=== PATIENT | female | born 1940 | race Caucasian/White ===

== ENCOUNTER → 2016-04-16 | Outpatient (CLI) | payer OTHER ==
[~2016-04-16] MED LIST: FLUO20CA35 PO; LEVO125T72 PO; LINA1CAP2 PO; PHOSPHATIDYLSERINE PO; ZINC100T3 PO; [UNRECOGNIZED DRUG - OTHER] PO; ambien PO; calcium PO; flaxseed PO; magnesium PO; oil of oregano PO; potassium PO; vitamin c PO; xanax PO
[2016-04-16 15:06] LABS: ESTIMATED AVERAGE GLUCOSE 146 mg/dl; HA1C FLAG Normal (Normal)
== END | disposition home or self-care (01) ==
LOC: C.LAB1850 13:53
PROVIDERS: ATTEND Internal Medicine Endocrinology, Diabetes & Metabolism
DX: E78.5 Hyperlipidemia, unspecified (principal); E10.21 Type 1 diabetes mellitus with diabetic nephropathy; E55.9 Vitamin D deficiency, unspecified

== ENCOUNTER → 2016-10-22 | Outpatient (CLI) | payer OTHER ==
[2016-10-22 13:35] LABS: ESTIMATED AVERAGE GLUCOSE 151 mg/dl; HA1C FLAG Normal (Normal)
[2016-10-22 13:45] LABS: ALT/SGPT 33 U/L (12-78); BLOOD UREA NITROGEN 27 mg/dl (7-18); BUN/CREATININE RATIO 24.6 (10-20); CALCIUM 9.5 mg/dl (8.5-10.1); CARBON DIOXIDE 32 mmol/L (21-32); CHLORIDE 102 mmol/L (98-107); CHOLESTEROL 140 mg/dl (0-200); GLUCOSE 121 mg/dl (70-99); POTASSIUM 4.7 mmol/L (3.5-5.1); SODIUM 137 mmol/L (136-145)
[2016-10-22 13:56] LABS: ALB/GLOB RATIO 1.2 (0.9-2); ALKALINE PHOSPHATASE 102 U/L (45-117); AST/SGOT 20 U/L (15-37); CHOLESTEROL/HDL RATIO 1.8; HDL CHOLESTEROL 78 mg/dl; LDL CHOLESTEROL CALCULATED 50 mg/dl; TRIGLYCERIDES 60 mg/dl (0-150); VERY LOW DENSITY LIPOPROT CALC 12 mg/dl
[2016-10-22 15:40] LABS: RATIO 9.1 mcg/mg (0-30.0)
== END | disposition home or self-care (01) ==
LOC: C.LAB1850 12:16
PROVIDERS: ATTEND Internal Medicine Endocrinology, Diabetes & Metabolism
DX: E55.9 Vitamin D deficiency, unspecified (principal); E10.649 Type 1 diabetes mellitus with hypoglycemia without coma; E87.1 Hypo-osmolality and hyponatremia

== ENCOUNTER → 2017-04-22 | Outpatient (CLI) | payer OTHER ==
[2017-04-22 14:05] LABS: BLOOD UREA NITROGEN 26 mg/dl (7-18); CALCIUM 9.8 mg/dl (8.5-10.1); CARBON DIOXIDE 28 mmol/L (21-32); CREATININE 0.93 mg/dl (0.60-1.20); GLUCOSE 267 mg/dl (70-99); POTASSIUM 4.5 mmol/L (3.5-5.1); SODIUM 137 mmol/L (136-145)
== END | disposition home or self-care (01) ==
LOC: C.LAB1850 12:05
PROVIDERS: ATTEND Internal Medicine Endocrinology, Diabetes & Metabolism
DX: E10.9 Type 1 diabetes mellitus without complications (principal); N18.9 Chronic kidney disease, unspecified

== ENCOUNTER 2020-07-16 07:47 | Observation (INO) ==
--- NOTE | 2020-07-16 07:51 | Emergency Department Note ---
Impression & Plan Nausea & vomiting, Dehydration, Abdominal pain ED Provider Note NAME: ELINOR BULLOCK AGE: 80 SEX: F : 1940 ARRIVES VIA: Walk-In INFORMANT: Patient, ED PROVIDER(S): Peter Pérez MD Chief Complaint: Nausea vomiting HPI: Patient does present with nausea and vomiting has been ongoing the last 2 to 3 days. Symptoms have been fairly constant and have not improved since they began. The patient states she was recently started on tetracycline from her process technician Dr. Loera due to concern for diarrhea secondary to neuropathy. Patient is started medication last Tuesday and believes she stopped it s everal days ago. Patient denies any stream or well water use or changes in diet. The patient is insulin-dependent diabetic and does use an insulin pump. Patient denies receiving any recent boluses as the patient has not been eating well. The patient likely has not taken her medications for last 3 days. The patient has had cramping and burning reflux type abdominal pain that is diffuse over the mid and upper abdomen. The patient denies any recent falls. No known sick contacts. The patient states she is vaccinated for Covid. The patient has not noticed any blood in the urine, stool or vomit. The patient denies any blood thinning medications. Patient denies any recent surgeries procedures or travel. ROS: See HPI for pertinent positives and negatives. A total of 10 systems were rev iewed and otherwise negative. Past medical history: See below Surgical history: See below Social history: See below Physical Exam: GENERAL: Wearing a mask. NAD, non-toxic. EYE EXAM: Normal conjunctiva. PERRL, no anisocoria and EOM's grossly intact w/o pain. NECK: Supple, no nuchal rigidity, no adenopathy, non-tender. No signs of meningismus. LUNGS: Clear to auscultation. Normal chest wall mechanics. HEART: Tachycardic and regular, stock ejection murmur noted. ABDOMEN: Abdomen soft, upper and mid abdominal discomfort without peritonitis, insulin pump in place in the mid abdomen with no surrounding erythema, crepitus or drainage, normo-active bowel sounds, no masses, no rebound or guarding. BACK: No CVA TTP. SKIN: No rashes and no bruising. UPPER EXTREMITIES: Upper extremities are grossly normal. LOWER EXTREMITIES: Grossly normal, no edema. NEURO EXAM: A&O x3, cranial nerves II-XII grossly intact, normal speech, moves all 4 extremities on command w/o issue. Differential diagnoses: Appendicitis, ovarian cyst, ovarian torsion, ectopic , TOA, PID, infections, diverticulitis, UTI, obstruction, mesenteric ischemia, aortic pathology, inflammatory bowel disease, renal colic, PUD, pancreatitis, biliary pathology, hernia, volvulus, constipation, as well as other pathologies. Course: Patient was seen and evaluated the bedside. Full history physical exam was performed. EKG interpreted by me Sinus tachycardia, rate of 112, normal intervals, left axis deviation, T WI in V2 not in contiguous leads. Imaging Studies: See below Cardiac monitoring: An order was placed for continuous cardiac monitoring. The monitor shows a rate of 110 with tachycardic rhythm. MDM: Patient did present with concern for nausea vomiting and abdominal pain. Blood work is obtained along with a CT abdomen pelvis and the patient was treated symptomatically. Patient is a normal white count H&H and platelet count. The patient's kidney function is mildly changed from prior. The patient does not have an anion gap or low bicarb. The patient is not DKA. LFTs and troponin unremarkable. Urinalysis does show evidence of dehydration with ketones. Upon subsequent reassessment the patient has had some intractable nausea was given additional rounds of nausea medication. Chest x-ray clear. CT abdomen pelvis does not show any acute infectious or inflammatory findings of the abdomen pelvis but does show tree-in-bud opacities at the base of the lungs. The patient has complained of nonproductive cough. Covid negative. Antibiotics deferred at this time as the patient does not have a white count is a non-smoker and does not have productive cough. I did speak the on-call hospitalist and the patient was admitted by Dr. Smallwood. 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 Dysesthesia Dyslipidemia Leon's thyroiditis Hypertension Hypothyroidism Neurogenic claudication Osteopenia Spinal stenosis of lumbar region Type 1 diabetes mellitus with complications Surgical History H/O wrist surgery History of appendectomy History of hip surgery History of tonsillectomy and adenoidectomy Family History Mother Hypertension Father Cancer Social History Smoking Status: Former smoker Hx Alcohol Use: Yes Alcohol type: wine Preferred Language: Yakut Communication Ability: Effective Visual Impairment: Limited Hearing Ability: Normal Beliefs That Will Affect Care: None marital status: current occupational status: retired current occupation: retired Feels Safe at Home: Yes Allergies Allergies Allergy/AdvReac Type Severity Reaction Status Date / Time No Known Allergies Allergy Verified 07/16/20 08:58 Home Meds Home Medications Medication Instructions Recorded Confirmed mirabegron 25 mg tablet,extended 25 mg PO DAILY 06/27/19 07/16/20 release 24 hr doxepin 3 mg tablet 3 mg PO HS PRN tab 08/06/19 07/16/20 brimonidine-timolol [Combigan] 1 drp OPB UD 07/16/20 07/16/20 duloxetine 60 mg PO DAILY 07/16/20 07/16/20 ipratropium bromide 1 spray INTRANASAL DAILY PRN 07/16/20 07/16/20 levothyroxine 100 mcg PO DAILY 07/16/20 07/16/20 midodrine 5 mg PO DAILY 07/16/20 07/16/20 Previous Rx's Medication Instructions Recorded zoledronic acid 5 mg/100 mL in 5 mg IV ONCE #100 ml 12/19/18 mannitol 5 %-water intravenous piggybck insulin syringe-needle U-100 0.3 #100 ea 08/09/19 mL 31 gauge x 5/16" atorvastatin 40 mg tablet 40 mg PO DAILY #90 tab 02/21/20 calcitriol 0.5 mcg capsule 0.5 mcg PO DAILY #90 cap 02/21/20 gabapentin 300 mg capsule 300 mg PO .COMPLEX #450 cap 02/21/20 Novolog U-100 Insulin aspart 100 60 unit CONTINUOUS SUBCUTANEOUS 03/06/20 unit/mL subcutaneous solution INFUSION DAILY 90 Days #60 ml NS Contour Next Test Strips #400 ea NS 06/17/20 tetracycline 250 mg capsule 250 mg PO Q6H #120 cap 07/07/20 Results & Data (ED) Vital Signs Vital Signs - 24 hr 07/16/20 07:52 07/16/20 07:55 07/16/20 07:56 Temperature 37.1 C Temperature Source Oral Pulse Rate 111 H 113 H Pulse Rate from SpO2 Sensor 111 H Pulse Rhythm Regular Pulse Strength Normal Respiratory Rate 22 15 Respiratory Effort / Characteristics Non-Labored Spontaneous Respiratory Depth Normal Respiratory Pattern Regular Blood Pressure 190/138 H 190/135 H Blood Pressure Mean 155 153 Blood Pressure Position Lying Pulse Oximetry 95 97 95 Oxygen Delivery Method Room Air Room Air Sepsis Recent Fever Within 48 Hours No Sepsis New/Unexplained Change in Mental Status No Sepsis Action Taken by Nursing No Action Required 07/16/20 08:00 07/16/20 08:31 07/16/20 09:00 Temperature Temperature Source Pulse Rate 109 H 115 H 111 H Pulse Rate from SpO2 Sensor 110 H 114 H 112 H Pulse Rhythm Pulse Strength Respiratory Rate 25 H 24 21 Respiratory Effort / Characteristics Respiratory Depth Respiratory Pattern Blood Pressure 195/117 H 191/111 H 173/115 H Blood Pressure Mean 143 137 134 Blood Pressure Position Pulse Oximetry 95 96 95 Oxygen Delivery Method Sepsis Recent Fever Within 48 Hours Sepsis New/Unexplained Change in Mental Status Sepsis Action Taken by Nursing 07/16/20 10:00 07/16/20 10:30 Temperature Temperature Source Pulse Rate 111 H 110 H Pulse Rate from SpO2 Sensor 111 H Pulse Rhythm Pulse Strength Respiratory Rate 22 20 Respiratory Effort / Characteristics Respiratory Depth Respiratory Pattern Blood Pressure 164/91 H 167/104 H Blood Pressure Mean 115 125 Blood Pressure Position Pulse Oximetry 97 96 Oxygen Delivery Method Sepsis Recent Fever Within 48 Hours Sepsis New/Unexplained Change in Mental Status Sepsis Action Taken by [facility] Medications Current Medication List: was personally reviewed by me Laboratory Data Attestation: I reviewed the patient's lab results. Result diagrams: 07/16/20 08:15 07/16/20 08:15 Lab Results 07/16/20 07/16/20 07/16/20 Range/Units 07:51 08:15 08:15 WBC 9.64 (4.8-10.8) K/uL RBC 4.50 (4.2-5.4) M/uL Hgb 13.6 (12.0-16.0) g/dL Hct 40.4 (37-47) % MCV 89.8 (80-100) fL MCH 30.2 (25-34) pg MCHC 33.7 (32-36) g/dL RDW Std Deviation 42.6 (36.4-46.3) fL RDW Coeff of Adrienne 12.9 (11.5-14.5) % Plt Count 332 (130-400) K/uL MPV 10.3 (7.4-10.4) fL Immature Gran % (Auto) 0.2 % Neut % (Auto) 81.3 % Lymph % (Auto) 10.9 % [place] % (Auto) 7.2 % Eos % (Auto) 0.0 % Baso % (Auto) 0.4 % Neut # (Auto) 7.84 H (1.4-6.5) K/uL Lymph # (Auto) 1.05 L (1.2-3.4) K/uL [place] # (Auto) 0.69 H (0.11-0.59) K/uL Eos # (Auto) 0.00 (0-0.5) K/uL Baso # (Auto) 0.04 (0-0.2) K/uL Immature Gran # (Auto) 0.02 (0.00-0.02) K/uL Sodium 136 (136-145) mmol/L Potassium 4.4 (3.5-5.1) mmol/L Chloride 101 (98-107) mmol/L Carbon Dioxide 28 (21-32) mmol/L Anion Gap 7.0 (3-11) BUN 41 H (7-18) mg/dl Creatinine 1.27 H (0.6-1.2) mg/dl Est Cr Clr Drug Dosing 34.9 ml/min Est GFR ( Amer) 46.5 ml/min Est GFR (Non-Af Amer) 40.1 ml/min BUN/Creatinine Ratio 32.5 H (10-20) Glucose 283 H (70-99) mg/dl POC Glucose 263 H (70-99) mg/dl Calcium 9.6 (8.5-10.1) mg/dl Magnesium 2.0 (1.8-2.4) mg/dl Total Bilirubin 1.0 (0.2-1) mg/dl AST 23 (15-37) U/L ALT 30 (12-78) U/L Alkaline Phosphatase 115 (45-117) U/L Troponin I < 0.015 (0-0.045) ng/ml Total Protein 7.2 (6.4-8.2) gm/dl Albumin 3.7 (3.4-5.0) gm/dl Globulin 3.5 (2.5-4.0) gm/dl Albumin/Globulin Ratio 1.1 (0.9-2) TSH 0.350 (0.300-4.500) uIu/ml Urine Color Urine Appearance (Clear) Urine pH (4.5-7.5) Ur Specific [place] (1.000-1.030) Urine Protein (Negative) Urine Glucose (UA) (Negative) Urine Ketones (Negative) Urine Blood (Negative) Urine Nitrite (Negative) Urine Bilirubin (Negative) Urine Urobilinogen (Negative) Ur Leukocyte Esterase (Negative) COVID-19 Eval Order SARS-CoV-2 (PCR) (Negative) 07/16/20 07/16/20 07/16/20 Range/Units 09:00 10:30 10:30 WBC (4.8-10.8) K/uL RBC (4.2-5.4) M/uL Hgb (12.0-16.0) g/dL Hct (37-47) % MCV (80-100) fL MCH (25-34) pg MCHC (32-36) g/dL RDW Std Deviation (36.4-46.3) fL RDW Coeff of Adrienne (11.5-14.5) % Plt Count (130-400) K/uL MPV (7.4-10.4) fL Immature Gran % (Auto) % Neut % (Auto) % Lymph % (Auto) % [place] % (Auto) % Eos % (Auto) % Baso % (Auto) % Neut # (Auto) (1.4-6.5) K/uL Lymph # (Auto) (1.2-3.4) K/uL [place] # (Auto) (0.11-0.59) K/uL Eos # (Auto) (0-0.5) K/uL Baso # (Auto) (0-0.2) K/uL Immature Gran # (Auto) (0.00-0.02) K/uL Sodium (136-145) mmol/L Potassium (3.5-5.1) mmol/L Chloride (98-107) mmol/L Carbon Dioxide (21-32) mmol/L Anion Gap (3-11) BUN (7-18) mg/dl Creatinine (0.6-1.2) mg/dl Est Cr Clr Drug Dosing ml/min Est GFR ( Amer) ml/min Est GFR (Non-Af Amer) ml/min BUN/Creatinine Ratio (10-20) Glucose (70-99) mg/dl POC Glucose (70-99) mg/dl Calcium (8.5-10.1) mg/dl Magnesium (1.8-2.4) mg/dl Total Bilirubin (0.2-1) mg/dl AST (15-37) U/L ALT (12-78) U/L Alkaline Phosphatase (45-117) U/L Troponin I (0-0.045) ng/ml Total Protein (6.4-8.2) gm/dl Albumin (3.4-5.0) gm/dl Globulin (2.5-4.0) gm/dl Albumin/Globulin Ratio (0.9-2) TSH (0.300-4.500) uIu/ml Urine Color Yellow Urine Appearance Clear (Clear) Urine pH 5.5 (4.5-7.5) Ur Specific [place] 1.021 (1.000-1.030) Urine Protein Negative (Negative) Urine Glucose (UA) 3+ H (Negative) Urine Ketones Trace H (Negative) Urine Blood Negative (Negative) Urine Nitrite Negative (Negative) Urine Bilirubin Negative (Negative) Urine Urobilinogen Negative (Negative) Ur Leukocyte Esterase Negative (Negative) COVID-19 Eval [address] Covid19 at [facility] SARS-CoV-2 (PCR) NEGATIVE (Negative) Administered Medications Discontinued Medications Sodium Chloride (Nss 1000ml) 2,000 mls @ 999 mls/hr IV .Q2H1M DANGELO Stop: 07/16/20 10:00 Last Infusion: 07/16/20 10:34 Dose: 0 mls/hr Documented by: [id number] Admin: 07/16/20 08:23 Dose: 999 mls/hr Documented by: [id number] Sodium Chloride (Nss 1000ml) 500 mls @ 999 mls/hr IV .Q31M ONE Stop: 07/16/20 10:32 Last Infusion: 07/16/20 11:37 Dose: 0 mls/hr Documented by: [id number] Admin: 07/16/20 10:41 Dose: 999 mls/hr Documented by: [id number] Ioversol (Optiray 320 150ml) 89 ml IV ONCE ONE Stop: 07/16/20 09:23 Last Admin: 07/16/20 09:22 Dose: 89 ml Documented by: [id number] Ondansetron HCl (Ondansetron Inj 2 Mg/Ml 2 Ml Vial) 4 mg IV NOW STA Stop: 07/16/20 07:59 Last Admin: 07/16/20 08:23 Dose: 4 mg Documented by: [id number] Ondansetron HCl (Ondansetron Inj 2 Mg/Ml 2 Ml Vial) 4 mg IV NOW STA Stop: 07/16/20 10:03 Last Admin: 07/16/20 10:40 Dose: 4 mg Documented by: [id number] Imaging Data Radiologist's Impression: Abdomen/Pelvis CT 07/16/20 07:58 CT abd pelvis IV con only CLINICAL HISTORY: Abdominal pain, nausea, vomiting, diarrhea. COMPARISON STUDY: None. TECHNIQUE: Patient was scanned in a dynamic helical fashion during intravenous administration of 89 cc of Optiray 320. A dose lowering technique was utilized adhering to the principles of ALARA. CT DOSE: 699.75 mGy.cm FINDINGS: Lower chest: There are bibasilar tree-in-bud opacities, statistically infectious/inflammatory. There is distal esophageal wall thickening. There are no pleural effusions. Liver: The contrast-enhanced liver is normal in size, contour, and attenuation. There is no intrahepatic biliary ductal dilatation. The hepatic veins and portal veins are patent. Gallbladder: Unremarkable. Spleen: Normal in size and attenuation. Pancreas: Unremarkable. Adrenal glands: Unremarkable. Kidneys: There is an 8mm right renal cortical cyst. There is no hydronephrosis. No solid renal masses are visualized. Bowel: There are no transition zones indicate bowel obstruction. There is no evidence of acute diverticulitis. By history the appendix is surgically absent. Peritoneum: There is no intraperitoneal free air or abdominal ascites. There is a tiny fat-containing umbilical hernia. Vasculature: The abdominal aorta is normal in course and caliber. Adenopathy: None. Pelvic viscera: The bladder, and pelvic viscera are unremarkable. Skeletal structures: Postsurgical changes involve the left hip. No destructive skeletal lesions are visualized. There is calcification of the L4-5 disc. There is discogenic endplate erosive changes at the L2-3 level and L3-4 level. IMPRESSION: 1. No evidence of bowel obstruction. No evidence of free air 2. No evidence of acute diverticulitis. Reportedly surgically absent appendix 3. Bilateral lower lobe tree-in-bud pulmonary opacities, statistically infectious/inflammatory 4. Distal esophageal wall thickening ACT 112: Negative or not required by law. Electronically signed by: Jose Mahan M.D. 07/16/2020 9:53 AM Chest X-Ray 07/16/20 07:58 XR chest 1V portable HISTORY: 80 years-old Female weakness acute weakness COMPARISON: None TECHNIQUE: Portable AP view of the chest FINDINGS: Nipple shadow projects of the right lung base. Cardiomediastinal and hilar silhouettes are within normal limits. Mild pleural thickening of the lung apices, right greater than left. There is no pneumothorax, pleural effusion, airspace consolidation or overt pulmonary edema. There are healed chronic fractures of the lateral left third and fourth ribs. Degenerative changes of the shoulders and spine. IMPRESSION: 1. No acute process. 2. Mild pleural thickening of the lung apices, right greater than left. ACT 112: Negative or not required by law. The above report was generated using voice recognition software. It may contain grammatical, syntax or spelling errors. Electronically signed by: Ethan Stuart M.D. 07/16/2020 8:32 AM Discharge Plan Visit Data Chief Complaint: Nausea Stated Complaint: NAUSEA ED Provider: Peter Pérez Discharge Problem: Nausea & vomiting, Dehydration, Abdominal pain Forms Stand Alone Forms: [facility] [employer] Prescriptions Prescriptions: No Action Myrbetriq 25 mg tablet extended release 24 hr 25 mg PO DAILY RF: 0 doxepin [Silenor] 3 mg tablet 3 mg PO HS PRN (Reason: Unknown) RF: 0 (DME) insulin syringe-needle U-100 [BD SafetyGlide Insulin Syringe] 0.3 mL 31 gauge x 5/16" syringe See Dose Instructions .ROUTE .MEDSUPPLY Qty: 100 RF: 0 atorvastatin 40 mg tablet 40 mg PO DAILY Qty: 90 RF: 1 calcitriol 0.5 mcg capsule 0.5 mcg PO DAILY Qty: 90 RF: 1 gabapentin 300 mg capsule 300 mg PO .COMPLEX Qty: 450 RF: 1 Novolog U-100 Insulin aspart 100 unit/mL solution 60 unit continuous subcutaneous infusion DAILY 90 Days Qty: 60 RF: 1 (DME) Contour Next Test Strips Strip See Rx Instructions .ROUTE .MEDSUPPLY Qty: 400 RF: 3 zoledronic [id number] [Reclast] 5 mg/100 mL piggyback 5 mg IV ONCE Qty: 100 RF: 0 tetracycline 250 mg capsule 250 mg PO Q6H Qty: 120 RF: 0 midodrine 5 mg tablet 5 mg PO DAILY RF: 0 levothyroxine 100 mcg tablet 100 mcg PO DAILY RF: 0 duloxetine 60 mg capsule,delayed release(DR/EC) 60 mg PO DAILY RF: 0 ipratropium bromide 42 mcg (0.06 %) spray,non-aerosol 1 spray INTRANASAL DAILY PRN (Reason: Congestion) RF: 0 Combigan 0.2-0.5 % drops 1 drp OPB UD RF: 0 Discharge Problem: Nausea & vomiting Qualifiers: Vomiting type: unspecified Vomiting Intractability: intractable Qualified Code(s): R11.2 - Nausea with vomiting, unspecified Abdominal pain Qualifiers: Abdominal location: unspecified location Qualified Code(s): R10.9 - Unspecified abdominal pain
[2020-07-16] MEDS ORDERED: ONDANSETRON INJ 2 MG/ML 2 ML VIAL IV STA ×2 (07:58→10:02)
[2020-07-16] MEDS ORDERED: SODIUM CHLORIDE 0.9% 1000ML 2,000 ML IV SCH (08:00)
--- NOTE | 2020-07-16 08:34 | XRay Report ---
XR chest 1V portable HISTORY: 80 years-old Female weakness acute weakness COMPARISON: None TECHNIQUE: Portable AP view of the chest FINDINGS: Nipple shadow projects of the right lung base. Cardiomediastinal and hilar silhouettes are within nor mal limits. Mild pleural thickening of the lung apices, right greater than left. There is no pneumoth orax, pleural effusion, airspace consolidation or overt pulmonary edema. There are healed chronic fra ctures of the lateral left third and fourth ribs. Degenerative changes of the shoulders and spine. IMPRESSION: 1. No acute process. 2. Mild pleural thickening of the lung apices, right greater than left. ACT 112: Negative or not required by law. The above report was generated using voice recognition software. It may contain grammatical, syntax o r spelling errors. Electronically signed by: Ethan Stuart M.D. 07/16/2020 8:32 AM
[2020-07-16 08:39] LABS: Basophils # (auto) 0.04 K/uL (0-0.2); Basophils % (auto) 0.4 %; Hematocrit (blood only) 40.4 % (37-47); Hemoglobin 13.6 g/dL (12.0-16.0); Immature Granulocytes # (auto) 0.02 K/uL (0.00-0.02); Immature Granulocytes % (auto) 0.2 %; Lymphocytes # (auto) 1.05 K/uL (1.2-3.4); Lymphocytes % (auto) 10.9 %; Mean Corpuscular Hemoglobin 30.2 pg (25-34); Mean Corpuscular Hgb Conc 33.7 g/dL (32-36); Mean Corpuscular Volume 89.8 fL (80-100); Mean Platelet Volume 10.3 fL (7.4-10.4); Monocytes # (auto) 0.69 K/uL (0.11-0.59); Monocytes % (auto) 7.2 %; Neutrophils # (auto) 7.84 K/uL (1.4-6.5); Neutrophils % (auto) 81.3 %; Platelet Count 332 K/uL (130-400); RDW Coefficient of Variation 12.9 % (11.5-14.5); RDW Standard Deviation 42.6 fL (36.4-46.3); White Blood Count 9.64 K/uL (4.8-10.8)
[2020-07-16 08:57] LABS: Alanine Aminotransferase 30 U/L (12-78); Albumin Level 3.7 gm/dl (3.4-5.0); Aspartate Aminotransferase 23 U/L (15-37); BUN Creatinine Ratio 32.5 (10-20); Blood Urea Nitrogen 41 mg/dl (7-18); Calcium 9.6 mg/dl (8.5-10.1); Carbon Dioxide 28 mmol/L (21-32); Chloride 101 mmol/L (98-107); Creatinine Clr Calc Pharmacy 34.9 ml/min; Est GFR (African American) 46.5 ml/min; Est GFR (Non-African American) 40.1 ml/min; Glucose 283 mg/dl (70-99); Potassium 4.4 mmol/L (3.5-5.1); Sodium 136 mmol/L (136-145)
--- NOTE | 2020-07-16 08:59 | Electrocardiogram Report ---
Test Reason : Blood Pressure : / mmHG Vent. Rate : 112 BPM Atrial Rate : 112 BPM P-R Int : 172 ms QRS Dur : 082 ms QT Int : 342 ms P-R-T Axes : 085 -18 077 degrees QTc Int : 466 ms Sinus tachycardia with Premature supraventricular complexes Anteroseptal infarct , age undetermined Abnormal ECG No previous ECGs available Confirmed by Ruel Metz ([id number]) on 07/16/2020 8:58:40 AM Referred By: REFERRED SELF Confirmed By:Ruel Metz
[2020-07-16 09:08] LABS: Albumin Globulin Ratio 1.1 (0.9-2); Alkaline Phosphatase 115 U/L (45-117); Globulin 3.5 gm/dl (2.5-4.0); Total Protein 7.2 gm/dl (6.4-8.2); Troponin I < 0.015 ng/ml (0-0.045)
[2020-07-16] MEDS ORDERED: OPTIRAY 320 150ml IV ONE (09:22)
--- NOTE | 2020-07-16 09:54 | CT Scan Report ---
CT abd pelvis IV con only CLINICAL HISTORY: Abdominal pain, nausea, vomiting, diarrhea. COMPARISON STUDY: None. TECHNIQUE: Patient was scanned in a dynamic helical fashion during intravenous administration of 89 c c of Optiray 320. A dose lowering technique was utilized adhering to the principles of ALARA. CT DOSE: 699.75 mGy.cm FINDINGS: Lower chest: There are bibasilar tree-in-bud opacities, statistically infectious/inflammatory. There is distal esophageal wall thickening. There are no pleural effusions. Liver: The contrast-enhanced liver is normal in size, contour, and attenuation. There is no intrahepa tic biliary ductal dilatation. The hepatic veins and portal veins are patent. Gallbladder: Unremarkable. Spleen: Normal in size and attenuation. Pancreas: Unremarkable. Adrenal glands: Unremarkable. Kidneys: There is an 8mm right renal cortical cyst. There is no hydronephrosis. No solid renal masses are visualized. Bowel: There are no transition zones indicate bowel obstruction. There is no evidence of acute divert iculitis. By history the appendix is surgically absent. Peritoneum: There is no intraperitoneal free air or abdominal ascites. There is a tiny fat-containing umbilical hernia. Vasculature: The abdominal aorta is normal in course and caliber. Adenopathy: None. Pelvic viscera: The bladder, and pelvic viscera are unremarkable. Skeletal structures: Postsurgical changes involve the left hip. No destructive skeletal lesions are v isualized. There is calcification of the L4-5 disc. There is discogenic endplate erosive changes at t he L2-3 level and L3-4 level. IMPRESSION: 1. No evidence of bowel obstruction. No evidence of free air 2. No evidence of acute diverticulitis. Reportedly surgically absent appendix 3. Bilateral lower lobe tree-in-bud pulmonary opacities, statistically infectious/inflammatory 4. Distal esophageal wall thickening ACT 112: Negative or not required by law. Electronically signed by: Jose Mahan M.D. 07/16/2020 9:53 AM
[2020-07-16 09:56] LABS: Appearance Urine Clear (Clear); Bilirubin Urine Negative (Negative); Blood Urine Negative (Negative); Color Urine Yellow; Glucose Urine UA 3+ (Negative); Ketones Urine Trace (Negative); Leukocyte Esterase Urine Negative (Negative); Nitrite Urine Negative (Negative); Protein Urine Negative (Negative); Specific Gravity Urine 1.021 (1.000-1.030); Urobilinogen Urine Negative (Negative); pH Urine 5.5 (4.5-7.5)
[2020-07-16] MEDS ORDERED: SODIUM CHLORIDE 0.9% 1000ML 500 ML IV ONE (10:02)
--- NOTE | 2020-07-16 11:58 | History & Physical Report ---
Date of Service July 16, 2020 Assessment & Plan (1) Diarrhea: 80 yo F with DM1, renal insufficiency admitted for PO intake, MICKY due to dehydration and Nausea/vomiting, diarrhea workup. Nausea/vomiting-likely secondary to tetracycline side effect. CT abd/pel with thickened distal esophagus -dc tetracycline -antiemetics prn -start IV pepcid and protonix -start carafate Diarrhea - stool wbc, culture, ova+parasites, giardia, C diff - no wbc elevation, but neutrophilic predominance - stopped tetracycline - monitor for continued diarrheal episodes MICKY with chronic renal insufficiency - Cr 1.2, mild elevation from normal - received 2.5L NS in ER - continue NS at 125/hr x2L for hydration, follow up BMP tomorrow Sinus Tachycardia 2/2 abd pain - most ikely secondary to dehydration + diarrhea - telemetry monitoring, hydration as above - abd pain control with sucralfate, PPI and Famotidine IV - possibly pill esophagitis/gastritis causing abd pain. can look into outpatient EGD/Colonoscopy for follow up if persisting. Hypothyrdoisim - cont levothyroxine DM1 - can use own insulin pump - monitor BSG ACHS - no anion gap, only trace ketones in urine, no concern for DKA - home insulin regimen of 60u novolog subcu continuous infusion Urinary Retention - cont doxepin, mirabegron orthostatic hypotension - hold midodrine for BP 130/90 HLD - cont statin DM1 Neuropathy - cont gabapentin DVT ppx: lovenox FEN/GI: Dm2 diet, NS 125/hr, PPI + H2+ Sucralfate Code Status: Full Code. States she has a living will, unsure what's in it. Does NOT want to be "vegetable" or on nursing home intubation. Dispo: Med/Surg with tele. Lives alone, doesn't have nearby friends or family. 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 as well as chronic renal insufficiency, who was brought to ER by EMS for decreased PO intake, nausea and vomiting and persistent diarrhea. She describes that she has been having ongoing diarrhea for the past month without relief. She was seen on 07/07 by her pipe bowl paint trimmer who prescribed tetracycline to help. She notes that she felt more sick after starting the medic ation and was more nauseous with it. she doesn't know if the diarrhea got any better as she was also taking immodium at the same time. she denies any current episodes of diarrhea. Primary Care Provider: Meg Hinton MD Allergies Allergy/AdvReac Type Severity Reaction Status Date / Time No Known Allergies Allergy Verified 07/16/20 08:58 Home Medications Medication Instructions Recorded Confirmed Type zoledronic acid 5 mg/100 mL in 5 mg IV ONCE #100 ml 12/19/18 07/16/20 Rx mannitol 5 %-water intravenous piggybck mirabegron 25 mg tablet,extended 25 mg PO DAILY 06/27/19 07/16/20 History release 24 hr doxepin 3 mg tablet 3 mg PO HS PRN tab 08/06/19 07/16/20 History insulin syringe-needle U-100 0.3 #100 ea 08/09/19 07/07/20 Rx mL 31 gauge x 5/16" atorvastatin 40 mg tablet 40 mg PO DAILY #90 tab 02/21/20 07/16/20 Rx calcitriol 0.5 mcg capsule 0.5 mcg PO DAILY #90 cap 02/21/20 07/16/20 Rx gabapentin 300 mg capsule 300 mg PO .COMPLEX #450 cap 02/21/20 07/16/20 Rx Novolog U-100 Insulin aspart 100 60 unit CONTINUOUS SUBCUTANEOUS 03/06/20 07/16/20 Rx unit/mL subcutaneous solution INFUSION DAILY 90 Days #60 ml NS Contour Next Test Strips #400 ea NS 06/17/20 07/07/20 Rx tetracycline 250 mg capsule 250 mg PO Q6H #120 cap 07/07/20 07/16/20 Rx brimonidine-timolol [Combigan] 1 drp OPB UD 07/16/20 07/16/20 History duloxetine 60 mg PO DAILY 07/16/20 07/16/20 History ipratropium bromide 1 spray INTRANASAL DAILY PRN 07/16/20 07/16/20 History levothyroxine 100 mcg PO DAILY 07/16/20 07/16/20 History midodrine 5 mg PO DAILY 07/16/20 07/16/20 History 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 Dysesthesia Dyslipidemia Baldomero's thyroiditis Hypertension Hypothyroidism Neurogenic claudication Osteopenia Spinal stenosis of lumbar region Type 1 diabetes mellitus with complications Surgical History H/O wrist surgery History of appendectomy History of hip surgery History of tonsillectomy and adenoidectomy Family History Mother Hypertension Father Cancer Social History Smoking Status: Former smoker Second Hand Exposure: No; Do You Dip or Chew Tobacco: No; Hx Alcohol Use: Yes Alcohol type: wine Hx Substance Use: No Preferred Language: French Communication Ability: Effective Visual Impairment: Limited Hearing Ability: Normal Computer Science Instructor Required: No Beliefs That Will Affect Care: None marital status: Current Living Situation: Alone current occupational status: retired current occupation: retired Other Information That Helps Us Care for You: No Feels Safe at Home: Yes Safety Concerns: Feels Safe At This Time Assistive Devices: Glasses and Hearing Aid - Bilateral Review of Systems Constitutional: + chills and + sweats; no fever and no fatigue Eyes: no blind spots and no discharge Ear, Nose, Mouth, Throat: no hearing loss and no nasal congestion Respiratory: no cough and no dyspnea Cardiovascular: no chest pain, no dyspnea on exertion and no edema Gastrointestinal: + abdominal pain, + heartburn, + nausea, + vomiting, + cramping and + diarrhea/loose stools; no coffee ground emesis, no hematemesis, no constipation, no blood in stools and no melena Genitourinary: no dysuria Musculoskeletal: no joint pain and no myalgia Neurologic: no tingling, no numbness and no headache(s) Physical Exam Physical Exam: Constitutional: thin, elderly, sad appearing sitting comfortably in bed. Eyes: EOMI, pupils equal and reactive bilaterally, no scleral icterus Cardiac: tachycardic, RR, no murmurs, gallops or rubs. Normal S1, S2 Pulm: CTA BL, no wheezes, rhonchi, crackles or rubs, moving air well throughout both lungs Abd: soft, nondistended, diffusely nontender to palpation, reduced bowel sounds, no rebound or guarding Extremities: 2+ peripheral pulses, no edema Neuro: no focal deficits, moving all 4 limbs, A&Ox3 Results & Data Results & Data ([facility]) Vital Signs (Past 12 Hours) Vital Signs Temp Pulse Resp BP Pulse Ox 07/16/20 10:30 110 H 20 167/104 H 96 07/16/20 10:00 111 H 22 164/91 H 97 07/16/20 09:00 111 H 21 173/115 H 95 07/16/20 08:31 115 H 24 191/111 H 96 07/16/20 08:00 109 H 25 H 195/117 H 95 07/16/20 07:56 37.1 C 113 H 15 190/135 H 95 07/16/20 07:55 97 07/16/20 07:52 111 H 22 190/138 H 95 Laboratory Results WBC 9.64 K/uL (4.8-10.8) 07/16/20 08:15 RBC 4.50 M/uL (4.2-5.4) 07/16/20 08:15 Hgb 13.6 g/dL (12.0-16.0) 07/16/20 08:15 Hct 40.4 % (37-47) 07/16/20 08:15 MCV 89.8 fL (80-100) 07/16/20 08:15 MCH 30.2 pg (25-34) 07/16/20 08:15 MCHC 33.7 g/dL (32-36) 07/16/20 08:15 RDW Std Deviation 42.6 fL (36.4-46.3) 07/16/20 08:15 RDW Coeff of Adrienne 12.9 % (11.5-14.5) 07/16/20 08:15 Plt Count 332 K/uL (130-400) 07/16/20 08:15 MPV 10.3 fL (7.4-10.4) 07/16/20 08:15 Immature Gran % (Auto) 0.2 % 07/16/20 08:15 Neut % (Auto) 81.3 % 07/16/20 08:15 Lymph % (Auto) 10.9 % 07/16/20 08:15 Porter % (Auto) 7.2 % 07/16/20 08:15 Eos % (Auto) 0.0 % 07/16/20 08:15 Baso % (Auto) 0.4 % 07/16/20 08:15 Neut # (Auto) 7.84 K/uL (1.4-6.5) H 07/16/20 08:15 Lymph # (Auto) 1.05 K/uL (1.2-3.4) L 07/16/20 08:15 Porter # (Auto) 0.69 K/uL (0.11-0.59) H 07/16/20 08:15 Eos # (Auto) 0.00 K/uL (0-0.5) 07/16/20 08:15 Baso # (Auto) 0.04 K/uL (0-0.2) 07/16/20 08:15 Immature Gran # (Auto) 0.02 K/uL (0.00-0.02) 07/16/20 08:15 Sodium 136 mmol/L (136-145) 07/16/20 08:15 Potassium 4.4 mmol/L (3.5-5.1) 07/16/20 08:15 Chloride 101 mmol/L (98-107) 07/16/20 08:15 Carbon Dioxide 28 mmol/L (21-32) 07/16/20 08:15 Anion Gap 7.0 (3-11) 07/16/20 08:15 BUN 41 mg/dl (7-18) H 07/16/20 08:15 Creatinine 1.27 mg/dl (0.6-1.2) H 07/16/20 08:15 Est Cr Clr Drug Dosing 34.9 ml/min 07/16/20 08:15 Est GFR ( Amer) 46.5 ml/min 07/16/20 08:15 Est GFR (Non-Af Amer) 40.1 ml/min 07/16/20 08:15 BUN/Creatinine Ratio 32.5 (10-20) H 07/16/20 08:15 Glucose 283 mg/dl (70-99) H 07/16/20 08:15 POC Glucose 263 mg/dl (70-99) H 07/16/20 07:51 Calcium 9.6 mg/dl (8.5-10.1) 07/16/20 08:15 Magnesium 2.0 mg/dl (1.8-2.4) 07/16/20 08:15 Total Bilirubin 1.0 mg/dl (0.2-1) 07/16/20 08:15 AST 23 U/L (15-37) 07/16/20 08:15 ALT 30 U/L (12-78) 07/16/20 08:15 Alkaline Phosphatase 115 U/L (45-117) 07/16/20 08:15 Troponin I < 0.015 ng/ml (0-0.045) 07/16/20 08:15 Total Protein 7.2 gm/dl (6.4-8.2) 07/16/20 08:15 Albumin 3.7 gm/dl (3.4-5.0) 07/16/20 08:15 Globulin 3.5 gm/dl (2.5-4.0) 07/16/20 08:15 Albumin/Globulin Ratio 1.1 (0.9-2) 07/16/20 08:15 TSH 0.350 uIu/ml (0.300-4.500) 07/16/20 08:15 Urine Color Yellow 07/16/20 09:00 Urine Appearance Clear (Clear) 07/16/20 09:00 Urine pH 5.5 (4.5-7.5) 07/16/20 09:00 Ur Specific [place] 1.021 (1.000-1.030) 07/16/20 09:00 Urine Protein Negative (Negative) 07/16/20 09:00 Urine Glucose (UA) 3+ (Negative) H 07/16/20 09:00 Urine Ketones Trace (Negative) H 07/16/20 09:00 Urine Blood Negative (Negative) 07/16/20 09:00 Urine Nitrite Negative (Negative) 07/16/20 09:00 Urine Bilirubin Negative (Negative) 07/16/20 09:00 Urine Urobilinogen Negative (Negative) 07/16/20 09:00 Ur Leukocyte Esterase Negative (Negative) 07/16/20 09:00 COVID-19 Eval Order Covid19 at [facility] 07/16/20 10:30 SARS-CoV-2 (PCR) NEGATIVE (Negative) 07/16/20 10:30 Impressions Abdomen/Pelvis CT 07/16/20 07:58 CT abd pelvis IV con only CLINICAL HISTORY: Abdominal pain, nausea, vomiting, diarrhea. COMPARISON STUDY: None. TECHNIQUE: Patient was scanned in a dynamic helical fashion during intravenous administration of 89 cc of Optiray 320. A dose lowering technique was utilized adhering to the principles of ALARA. CT DOSE: 699.75 mGy.cm FINDINGS: Lower chest: There are bibasilar tree-in-bud opacities, statistically infectious/inflammatory. There is distal esophageal wall thickening. There are no pleural effusions. Liver: The contrast-enhanced liver is normal in size, contour, and attenuation. There is no intrahepatic biliary ductal dilatation. The hepatic veins and portal veins are patent. Gallbladder: Unremarkable. Spleen: Normal in size and attenuation. Pancreas: Unremarkable. Adrenal glands: Unremarkable. Kidneys: There is an 8mm right renal cortical cyst. There is no hydronephrosis. No solid renal masses are visualized. Bowel: There are no transition zones indicate bowel obstruction. There is no evidence of acute diverticulitis. By history the appendix is surgically absent. Peritoneum: There is no intraperitoneal free air or abdominal ascites. There is a tiny fat-containing umbilical hernia. Vasculature: The abdominal aorta is normal in course and caliber. Adenopathy: None. Pelvic viscera: The bladder, and pelvic viscera are unremarkable. Skeletal structures: Postsurgical changes involve the left hip. No destructive skeletal lesions are visualized. There is calcification of the L4-5 disc. There is discogenic endplate erosive changes at the L2-3 level and L3-4 level. IMPRESSION: 1. No evidence of bowel obstruction. No evidence of free air 2. No evidence of acute diverticulitis. Reportedly surgically absent appendix 3. Bilateral lower lobe tree-in-bud pulmonary opacities, statistically infectious/inflammatory 4. Distal esophageal wall thickening ACT 112: Negative or not required by law. Electronically signed by: Jose Mahan M.D. 07/16/2020 9:53 AM Chest X-Ray 07/16/20 07:58 XR chest 1V portable HISTORY: 80 years-old Female weakness acute weakness COMPARISON: None TECHNIQUE: Portable AP view of the chest FINDINGS: Nipple shadow projects of the right lung base. Cardiomediastinal and hilar silhouettes are within normal limits. Mild pleural thickening of the lung a pices, right greater than left. There is no pneumothorax, pleural effusion, airspace consolidation or overt pulmonary edema. There are healed chronic fractures of the lateral left third and fourth ribs. Degenerative changes of the shoulders and spine. IMPRESSION: 1. No acute process. 2. Mild pleural thickening of the lung apices, right greater than left. ACT 112: Negative or not required by law. The above report was generated using voice recognition software. It may contain grammatical, syntax or spelling errors. Electronically signed by: Ethan Stuart M.D. 07/16/2020 8:32 AM Supervising Physician Co-Signing Physician Notes I personally examined the patient and verified all reddy points of history and exam, discussed case, and agree with decision making with Dr. Bee with the following additions/exceptions: Pt is a 80 yo female with a h/o hypothyroidism, DM1 on insulin pump, neuropathy, chronic diarrhea, depression, HTN, orthostatic hypotension/autonomic dysfunction, osteoporosis, lumbar spinal stenosis, here with intractable N/V in setting of chronic diarrhea after starting tetracycline for presumed SIBO. Has some upper abd pains, no fevers, no diarrhea in 3 days now. No hematemesis, no melena or hematochezia. History and ROS reviewed also having vaginal itching and thinks has a yeast infection since being on tetracycline Vitals reviewed-tachycardic, hypertensive, afebrile Gen: AAOx3, NAD HEENT: Anicteric sclerae, EOMI CV: Regular rhythm, mildly tachycardic no mgr nl S1S2 Pulm: CTAB no wcr Abd: +BS soft NT ND no masses or hernias Ext: No edema Skin: No rashes, warm/dry Neuro: Full strength throughout Laboratory values reviewed ECG reviewed CT abdomen/pelvis reviewed 80-year-old female with history as above, here with nausea/vomiting, mild dehydration in the setting of chronic diarrhea, likely secondary to tetracycline -Plan outlined as above -Hydrate with IV fluids Tachycardia likely secondary to dehydration Hold midodrine if still hypertensive in the morning Tetracycline was given to treat small intestinal bowel overgrowth which can be a cause of diabetic diarrhea Could consider rifaximin treatment but her diarrhea seems to be resolved for the last several days at this point After admission, her blood sugar was found be 300 and patient reported she was not sure how to work her insulin pump and had not given herself a bolus in several days.-Insulin pump was removed and pharmacy will treat her with Lantus and NovoLog Treat nausea/vomiting potential gastritis and esophagitis with PPI IV, Pepcid IV, and Carafate. Resident Activity Tracking Resident Involvement: Resident Care Provided Care Provided: Adult Hospital Medicine (1) Nausea & vomiting Vomiting Intractability: intractable Vomiting type: unspecified Qualified Code(s): R11.2 - Nausea with vomiting, unspecified
[2020-07-16] MEDS ORDERED: PROMETHAZINE HCL 6.25 MG in SODIUM CHLORIDE 0.9% 50 ML IV PRN (13:19)
[2020-07-16] MEDS ORDERED: ONDANSETRON INJ 2 MG/ML 2 ML VIAL IV PRN (13:19)
[2020-07-16] MEDS ORDERED: GLUCOSE 40% GEL 15 GM TUBE PO PRN ×2 (13:19→14:45)
[2020-07-16] MEDS ORDERED: GLUCAGON FOR INJ 1 MG VIAL SQ PRN ×2 (13:19→14:45)
[2020-07-16] MEDS ORDERED: ACETAMINOPHEN 325 MG TAB PO PRN (13:19)
[2020-07-16] MEDS ORDERED: MAGNESIUM HYDROXIDE SUSP 30 ML UDC PO PRN (13:19)
[2020-07-16] MEDS ORDERED: CARBOHYDRATES FOR HYPOGLYCEMIA PO PRN ×2 (13:19→14:45)
[2020-07-16] MEDS ORDERED: DEXTROSE 50% 50 ML SYRINGE IV PRN ×2 (13:19→14:45)
[2020-07-16] MEDS ORDERED: GLUCOSE 10 TABS/TUBE PO PRN ×2 (13:19→14:45)
[2020-07-16] MEDS ORDERED: NITROGLYCERIN SL 0.4 MG/TAB TAB SL PRN (13:19)
[2020-07-16] MEDS: SODIUM CHLORIDE 0.9% 1000ML 1,000 ML IV SCH ×2 (13:37→21:05)
[2020-07-16] MEDS: FAMOTIDINE 20 MG in SYRINGE 3 ML IV SCH ×2 (14:12→21:05)
[2020-07-16] MEDS: PANTOprazole 40 MG in SYRINGE 0 ML IV SCH ×2 (14:12→21:05)
[2020-07-16] MEDS: SUCRALFATE 1 GM/10 ML UDC PO SCH ×3 (14:13→21:04)
[2020-07-16] MEDS ORDERED: PHARMACY GLYCEMIC MGMT CONSULT PRN (14:35)
[2020-07-16] MEDS ORDERED: INSULIN ASPART 100 UNITS/ML VIAL SC PRN (14:45)
--- NOTE | 2020-07-16 15:15 | Pharmacy Report ---
Pharmacy Glycemic Short Note 2 - Date of Service July 16, 2020 - Glycemic Short BSG Results (Last 24 hours): 07/16/20 07/16/20 07/16/20 07:51 08:15 13:25 Glucose 283 H POC Glucose 263 H 222 H OUTPATIENT ANTIDIABETIC REGIMEN: * Novolog Pump * Basal rate provides ~14 units/day * Correction factor 55 * Bolus insulin to carb ratio 14 * HbA1c ordered for 07/17/20 ASSESSMENT: * MAGDA is a 80 year old female with T1DM, presents for evaluation of ongoing diarrhea * Patient follows with [facility] endocrinology and is controlled with Novolog pump * Provider okay with patient managing with insulin pump * Will follow BSGs closely in light of diarrhea and will manage with SC basal/bolus if unable to control with pump * No steroids or obvious stressors that may lead to hyperglycemia identified PLAN FOR INPATIENT GLYCEMIC CONTROL: * Pt is to manage BSGs with insulin pump per outpatient settings. * RN will have patient read and sign agreement [id number] Insulin Pump Therapy Patient Agreement. * RN will provide and explain form [id number] Flowsheet for Patient * Patient will document their insulin dose given on [id number] which is kept at the bedside, available to caregivers upon request, and which becomes part of the permanent medical record. * If at any time the patients condition evidences that he/she is not able to manage the insulin pump (i.e. frequent hypo/hyperglycemia) Pharmacy will assume glycemic control by discontinuing the pump & managing with SQ basal bolus insulin regimen for the interim. PLAN FOR DISCHARGE: * A1c ordered for 07/17/20
[2020-07-16] MEDS ORDERED: ENOXAPARIN INJ 40 MG/0.4 ML SYR SQ SCH (16:00)
[2020-07-16] MEDS ORDERED: FLUCONAZOLE 50 MG TAB PO ONE (16:00)
[2020-07-16] MEDS ORDERED: NovoLOG INSULIN PUMP SCH (16:30)
[2020-07-16] MEDS ORDERED: INSULIN GLARGINE SOLOSTAR 100 UNITS/ML 3 ML PEN SC STA (16:37)
[2020-07-16] MEDS: INSULIN ASPART 100 UNITS/ML 3 ML PEN SC SCH ×2 (17:49→21:07)
--- NOTE | 2020-07-16 19:26 | Billing Data ---
Date of Service July 16, 2020 Coding Level of Care Code 02249 OBS Care - Level 3
[2020-07-16] MEDS ORDERED: INSULIN HUMAN REGULAR PER UNIT 7 UNITS in SYRINGE 6.93 ML IV STA (19:31)
[2020-07-16] MEDS ORDERED: GABAPENTIN 300 MG CAP PO SCH (21:00)
[2020-07-17] MEDS ORDERED: INSULIN ASPART 100 UNITS/ML 3 ML PEN SC SCH ×2 (02:00→15:00)
[2020-07-17] MEDS ORDERED: LEVOTHYROXINE SODIUM 100 MCG TABLET PO SCH (06:30)
[2020-07-17 07:38] LABS: Basophils # (auto) 0.03 K/uL (0-0.2); Basophils % (auto) 0.4 %; Eosinophils # (auto) 0.03 K/uL (0-0.5); Eosinophils % (auto) 0.4 %; Hematocrit (blood only) 35.5 % (37-47); Hemoglobin 11.7 g/dL (12.0-16.0); Immature Granulocytes # (auto) 0.02 K/uL (0.00-0.02); Immature Granulocytes % (auto) 0.3 %; Lymphocytes # (auto) 1.87 K/uL (1.2-3.4); Lymphocytes % (auto) 23.6 %; Mean Corpuscular Hemoglobin 29.5 pg (25-34); Mean Corpuscular Volume 89.4 fL (80-100); Mean Platelet Volume 10.4 fL (7.4-10.4); Monocytes # (auto) 0.75 K/uL (0.11-0.59); Monocytes % (auto) 9.5 %; Neutrophils # (auto) 5.21 K/uL (1.4-6.5); Neutrophils % (auto) 65.8 %; Platelet Count 255 K/uL (130-400); RDW Coefficient of Variation 13.1 % (11.5-14.5); RDW Standard Deviation 42.6 fL (36.4-46.3); Red Blood Count 3.97 M/uL (4.2-5.4); White Blood Count 7.91 K/uL (4.8-10.8)
[2020-07-17] MEDS: INSULIN ASPART 100 UNITS/ML 3 ML PEN SC SCH ×2 (08:19→12:18)
[2020-07-17] MEDS: GABAPENTIN 300 MG CAP PO SCH ×2 (08:23→12:20)
[2020-07-17] MEDS: PANTOprazole 40 MG in SYRINGE 0 ML IV SCH (08:23)
[2020-07-17 08:24] LABS: Albumin Globulin Ratio 1.1 (0.9-2); Bilirubin,Total 0.7 mg/dl (0.2-1); Calcium 8.3 mg/dl (8.5-10.1); Creatinine Clr Calc Pharmacy 43.9 ml/min; Est GFR (African American) 61.3 ml/min; Est GFR (Non-African American) 52.9 ml/min; Globulin 2.6 gm/dl (2.5-4.0); Magnesium 1.9 mg/dl (1.8-2.4); Potassium 3.6 mmol/L (3.5-5.1); Total Protein 5.6 gm/dl (6.4-8.2)
[2020-07-17] MEDS: SUCRALFATE 1 GM/10 ML UDC PO SCH ×2 (08:25→12:20)
[2020-07-17] MEDS: FAMOTIDINE 20 MG in SYRINGE 3 ML IV SCH (08:26)
[2020-07-17 08:47] LABS: Estimated Average Glucose 183 mg/dl
[2020-07-17] MEDS ORDERED: INSULIN ASPART PER UNIT SQ SCH (09:00)
[2020-07-17] MEDS ORDERED: MIDODRINE HCL 2.5 MG TAB PO SCH (09:00)
[2020-07-17] MEDS ORDERED: DULoxetine HCL 60 MG CAP PO SCH (09:00)
[2020-07-17] MEDS ORDERED: CALCITRIOL 0.25 MCG CAPSULE PO SCH (09:00)
[2020-07-17] MEDS ORDERED: MIRABEGRON ER 25 MG TAB PO SCH (09:00)
[2020-07-17] MEDS ORDERED: ATORVASTATIN 40 MG TAB PO SCH (09:00)
--- NOTE | 2020-07-17 11:12 | Pharmacy Report ---
Pharmacy Glycemic Short Note 2 - Date of Service July 17, 2020 - Glycemic Short BSG Results (Last 24 hours): 07/16/20 07/16/20 07/16/20 13:25 16:25 16:26 Glucose POC Glucose 222 H 303 H* 297 H 07/16/20 07/16/20 07/17/20 19:01 20:03 02:20 Glucose POC Glucose 304 H* 198 H 37 L* 07/17/20 07/17/20 07/17/20 02:22 02:45 06:55 Glucose 263 H POC Glucose 37 L* 171 H 07/17/20 07:53 Glucose POC Glucose 253 H OUTPATIENT ANTIDIABETIC REGIMEN: * Novolog Pump * Basal rate provides ~14 units/day * Correction factor 55 * Bolus insulin to carb ratio 14 * HbA1c = 8% on 07/17/20 ASSESSMENT: 07/17 * Pt with SEVERE hyperglycemia last evening (BSG 303/304 mg/dl). Insulin pump stopped and patient changed to SQ basal bolus insulin regimen * Pt with HYPOglycemia overnight ~ 0200 secondary to overcorrection with NovoLog +/- basal insulin * AM fasting BSG elevated this AM at 253 mg/dl but assuming this is just rebound hyperglycemia from hypo treatment overnight * Will continue with SQ basal bolus insulin regimen but adjust parameters accordingly. 07/16 * MAGDA is a 80 year old female with T1DM, presents for evaluation of ongoing diarrhea * Patient follows with [facility] endocrinology and is controlled with Novolog pump * Provider okay with patient managing with insulin pump * Will follow BSGs closely in light of diarrhea and will manage with SC basal/bolus if unable to control with pump * No steroids or obvious stressors that may lead to hyperglycemia identified PLAN FOR INPATIENT GLYCEMIC CONTROL: * Insulin pump dc'ed 07/16 * Basal insulin * Lantus 15 units SQ Q24hrs (outpatient basal is 14 units and typically patients require ~15% more SQ insulin than pump continuous insulin) * Bolus insulin * NovoLog per scale ACHS * Goal range = 100-140 mg/dl * CF = 30 mg/dl/unit * CR = 1 unit for every 10 g CHO consumed PLAN FOR DISCHARGE: * A1c = 8% on 07/17/20 * This is in goal range for patient based on age/co-morbidities. No changes needed to pump unless patient is experiencing frequent hypo/hyperglycemia
--- NOTE | 2020-07-17 13:52 | Discharge Summary ---
Date of Service July 17, 2020 Admission HPI Per Admitting Provider 80 yo F with hx Dm1on insulin pump, Dm1 neuropathy, baldomero's hypothyroidism, neurogenic claudication, sacroilitis, HTN and autonomic hypotension? as well as chronic renal insufficiency, who was brought to ER by EMS for decreased PO intake, nausea and vomiting and persistent diarrhea. She describes that she has been having ongoing diarrhea for the past month without relief. She was seen on 07/07 by her thread marker who prescribed tetracycline to help. She notes that she felt more sick after starting the medication and was more nauseous with it. she doesn't know if the diarrhea got any better as she was also taking immodium at the same time. she denies any current episodes of diarrhea. Principal Diagnosis Nausea/vomiting, tetracycline-induced gastritis, dehydration Discharge Exam Constitutional WD/WN, vitals as above Eyes + anicteric sclerae ENMT external ear and nose normal, oropharynx normal Neck trachea midline, no thyromegaly Respiratory normal respiratory effort, lungs clear to auscultation Cardiovascular Rate/Rhythm: regular rate and regular rhythm Heart Sounds: + murmur (2/6 systolic murmur at left sternal border) Extremities: no edema Chest (Breasts) Chest: normal inspection of chest Gastrointestinal (Abdomen) normal bowel sounds, soft, nontender, no hepatosplenomegaly Musculoskeletal Extremities: extremities normal to inspection; no cyanosis and no clubbing Skin no rashes, warm and dry Neurologic moves all extremities and awake; no focal motor deficits Psychiatric A+Ox3, euthymic affect Lymphatic no lymphedema Discharge Data Allergies Allergy/AdvReac Type Severity Reaction Status Date / Time No Known Allergies Allergy Verified 07/16/20 08:58 Consultations 07/16/20 11:06 ED Decision to Admit Stat Procedures Performed 07/17/20 07/17/20 07/17/20 Range/Units 11:33 07:53 06:55 WBC (4.8-10.8) K/uL RBC (4.2-5.4) M/uL Hgb (12.0-16.0) g/dL Hct (37-47) % MCV (80-100) fL MCH (25-34) pg MCHC (32-36) g/dL RDW Std Deviation (36.4-46.3) fL RDW Coeff of Adrienne (11.5-14.5) % Plt Count (130-400) K/uL MPV (7.4-10.4) fL Immature Gran % (Auto) % Neut % (Auto) % Lymph % (Auto) % Jessamine % (Auto) % Eos % (Auto) % Baso % (Auto) % Neut # (Auto) (1.4-6.5) K/uL Lymph # (Auto) (1.2-3.4) K/uL Jessamine # (Auto) (0.11-0.59) K/uL Eos # (Auto) (0-0.5) K/uL Baso # (Auto) (0-0.2) K/uL Immature Gran # (Auto) (0.00-0.02) K/uL Sodium 139 (136-145) mmol/L Potassium 3.6 D (3.5-5.1) mmol/L Chloride 107 (98-107) mmol/L Carbon Dioxide 26 (21-32) mmol/L Anion Gap 6.0 (3-11) BUN 26 H (7-18) mg/dl Creatinine 1.01 (0.6-1.2) mg/dl Est Cr Clr Drug Dosing 43.9 ml/min Est GFR ( Amer) 61.3 ml/min Est GFR (Non-Af Amer) 52.9 ml/min BUN/Creatinine Ratio 26.0 H (10-20) Glucose 263 H (70-99) mg/dl POC Glucose 204 H 253 H (70-99) mg/dl Estimat Average Glucose mg/dl Hemoglobin A1c (4.5-5.6) % Calcium 8.3 L (8.5-10.1) mg/dl Magnesium 1.9 (1.8-2.4) mg/dl Total Bilirubin 0.7 (0.2-1) mg/dl AST 30 (15-37) U/L ALT 34 (12-78) U/L Alkaline Phosphatase 88 (45-117) U/L Total Protein 5.6 L D (6.4-8.2) gm/dl Albumin 3.0 L (3.4-5.0) gm/dl Globulin 2.6 (2.5-4.0) gm/dl Albumin/Globulin Ratio 1.1 (0.9-2) 07/17/20 07/17/20 07/17/20 Range/Units 06:55 06:55 02:45 WBC 7.91 (4.8-10.8) K/uL RBC 3.97 L (4.2-5.4) M/uL Hgb 11.7 L (12.0-16.0) g/dL Hct 35.5 L (37-47) % MCV 89.4 (80-100) fL MCH 29.5 (25-34) pg MCHC 33.0 (32-36) g/dL RDW Std Deviation 42.6 (36.4-46.3) fL RDW Coeff of Adrienne 13.1 (11.5-14.5) % Plt Count 255 (130-400) K/uL MPV 10.4 (7.4-10.4) fL Immature Gran % (Auto) 0.3 % Neut % (Auto) 65.8 % Lymph % (Auto) 23.6 % Jessamine % (Auto) 9.5 % Eos % (Auto) 0.4 % Baso % (Auto) 0.4 % Neut # (Auto) 5.21 (1.4-6.5) K/uL Lymph # (Auto) 1.87 (1.2-3.4) K/uL Jessamine # (Auto) 0.75 H (0.11-0.59) K/uL Eos # (Auto) 0.03 (0-0.5) K/uL Baso # (Auto) 0.03 (0-0.2) K/uL Immature Gran # (Auto) 0.02 (0.00-0.02) K/uL Sodium (136-145) mmol/L Potassium (3.5-5.1) mmol/L Chloride (98-107) mmol/L Carbon Dioxide (21-32) mmol/L Anion Gap (3-11) BUN (7-18) mg/dl Creatinine (0.6-1.2) mg/dl Est Cr Clr Drug Dosing ml/min Est GFR ( Amer) ml/min Est GFR (Non-Af Amer) ml/min BUN/Creatinine Ratio (10-20) Glucose (70-99) mg/dl POC Glucose 171 H (70-99) mg/dl Estimat Average Glucose 183 mg/dl Hemoglobin A1c 8.0 H (4.5-5.6) % Calcium (8.5-10.1) mg/dl Magnesium (1.8-2.4) mg/dl Total Bilirubin (0.2-1) mg/dl AST (15-37) U/L ALT (12-78) U/L Alkaline Phosphatase (45-117) U/L Total Protein (6.4-8.2) gm/dl Albumin (3.4-5.0) gm/dl Globulin (2.5-4.0) gm/dl Albumin/Globulin Ratio (0.9-2) 07/17/20 07/17/20 07/16/20 Range/Units 02:22 02:20 20:03 WBC (4.8-10.8) K/uL RBC (4.2-5.4) M/uL Hgb (12.0-16.0) g/dL Hct (37-47) % MCV (80-100) fL MCH (25-34) pg MCHC (32-36) g/dL RDW Std Deviation (36.4-46.3) fL RDW Coeff of Adrienne (11.5-14.5) % Plt Count (130-400) K/uL MPV (7.4-10.4) fL Immature Gran % (Auto) % Neut % (Auto) % Lymph % (Auto) % Jessamine % (Auto) % Eos % (Auto) % Baso % (Auto) % Neut # (Auto) (1.4-6.5) K/uL Lymph # (Auto) (1.2-3.4) K/uL Jessamine # (Auto) (0.11-0.59) K/uL Eos # (Auto) (0-0.5) K/uL Baso # (Auto) (0-0.2) K/uL Immature Gran # (Auto) (0.00-0.02) K/uL Sodium (136-145) mmol/L Potassium (3.5-5.1) mmol/L Chloride (98-107) mmol/L Carbon Dioxide (21-32) mmol/L Anion Gap (3-11) BUN (7-18) mg/dl Creatinine (0.6-1.2) mg/dl Est Cr Clr Drug Dosing ml/min Est GFR ( Amer) ml/min Est GFR (Non-Af Amer) ml/min BUN/Creatinine Ratio (10-20) Glucose (70-99) mg/dl POC Glucose 37 L* 37 L* 198 H (70-99) mg/dl Estimat Average Glucose mg/dl Hemoglobin A1c (4.5-5.6) % Calcium (8.5-10.1) mg/dl Magnesium (1.8-2.4) mg/dl Total Bilirubin (0.2-1) mg/dl AST (15-37) U/L ALT (12-78) U/L Alkaline Phosphatase (45-117) U/L Total Protein (6.4-8.2) gm/dl Albumin (3.4-5.0) gm/dl Globulin (2.5-4.0) gm/dl Albumin/Globulin Ratio (0.9-2) 07/16/20 07/16/20 07/16/20 Range/Units 19:01 16:26 16:25 WBC (4.8-10.8) K/uL RBC (4.2-5.4) M/uL Hgb (12.0-16.0) g/dL Hct (37-47) % MCV (80-100) fL MCH (25-34) pg MCHC (32-36) g/dL RDW Std Deviation (36.4-46.3) fL RDW Coeff of Adrienne (11.5-14.5) % Plt Count (130-400) K/uL MPV (7.4-10.4) fL Immature Gran % (Auto) % Neut % (Auto) % Lymph % (Auto) % Jessamine % (Auto) % Eos % (Auto) % Baso % (Auto) % Neut # (Auto) (1.4-6.5) K/uL Lymph # (Auto) (1.2-3.4) K/uL Jessamine # (Auto) (0.11-0.59) K/uL Eos # (Auto) (0-0.5) K/uL Baso # (Auto) (0-0.2) K/uL Immature Gran # (Auto) (0.00-0.02) K/uL Sodium (136-145) mmol/L Potassium (3.5-5.1) mmol/L Chloride (98-107) mmol/L Carbon Dioxide (21-32) mmol/L Anion Gap (3-11) BUN (7-18) mg/dl Creatinine (0.6-1.2) mg/dl Est Cr Clr Drug Dosing ml/min Est GFR ( Amer) ml/min Est GFR (Non-Af Amer) ml/min BUN/Creatinine Ratio (10-20) Glucose (70-99) mg/dl POC Glucose 304 H* 297 H 303 H* (70-99) mg/dl Estimat Average Glucose mg/dl Hemoglobin A1c (4.5-5.6) % Calcium (8.5-10.1) mg/dl Magnesium (1.8-2.4) mg/dl Total Bilirubin (0.2-1) mg/dl AST (15-37) U/L ALT (12-78) U/L Alkaline Phosphatase (45-117) U/L Total Protein (6.4-8.2) gm/dl Albumin (3.4-5.0) gm/dl Globulin (2.5-4.0) gm/dl Albumin/Globulin Ratio (0.9-2) Ordered Studies 07/16/20 07:58 CT abd pelvis IV con only Stat Abdomen/Pelvis CT 07/16/20 07:58 CT abd pelvis IV con only CLINICAL HISTORY: Abdominal pain, nausea, vomiting, diarrhea. COMPARISON STUDY: None. TECHNIQUE: Patient was scanned in a dynamic helical fashion during intravenous administration of 89 cc of Optiray 320. A dose lowering technique was utilized adhering to the principles of ALARA. CT DOSE: 699.75 mGy.cm FINDINGS: Lower chest: There are bibasilar tree-in-bud opacities, statistically infectious/inflammatory. There is distal esophageal wall thickening. There are no pleural effusions. Liver: The contrast-enhanced liver is normal in size, contour, and attenuation. There is no intrahepatic biliary ductal dilatation. The hepatic veins and portal veins are patent. Gallbladder: Unremarkable. Spleen: Normal in size and attenuation. Pancreas: Unremarkable. Adrenal glands: Unremarkable. Kidneys: There is an 8mm right renal cortical cyst. There is no hydronephrosis. No solid renal masses are visualized. Bowel: There are no transition zones indicate bowel obstruction. There is no evidence of acute diverticulitis. By history the appendix is surgically absent. Peritoneum: There is no intraperitoneal free air or abdominal ascites. There is a tiny fat-containing umbilical hernia. Vasculature: The abdominal aorta is normal in course and caliber. Adenopathy: None. Pelvic viscera: The bladder, and pelvic viscera are unremarkable. Skeletal structures: Postsurgical changes involve the left hip. No destructive skeletal lesions are visualized. There is calcification of the L4-5 disc. There is discogenic endplate erosive changes at the L2-3 level and L3-4 level. IMPRESSION: 1. No evidence of bowel obstruction. No evidence of free air 2. No evidence of acute diverticulitis. Reportedly surgically absent appendix 3. Bilateral lower lobe tree-in-bud pulmonary opacities, statistically infectious/inflammatory 4. Distal esophageal wall thickening ACT 112: Negative or not required by law. Electronically signed by: Jose Mahan M.D. 07/16/2020 9:53 AM Chest X-Ray 07/16/20 07:58 XR chest 1V portable HISTORY: 80 years-old Female weakness acute weakness COMPARISON: None TECHNIQUE: Portable AP view of the chest FINDINGS: Nipple shadow projects of the right lung base. Cardiomediastinal and hilar silhouettes are within normal limits. Mild pleural thickening of the lung apices, right greater than left. There is no pneumothorax, pleural effusion, airspace consolidation or overt pulmonary edema. There are healed chronic fractures of the lateral left third and fourth ribs. Degenerative changes of the shoulders and spine. IMPRESSION: 1. No acute process. 2. Mild pleural thickening of the lung apices, right greater than left. ACT 112: Negative or not required by law. The above report was generated using voice recognition software. It may contain grammatical, syntax or spelling errors. Electronically signed by: Ethan Stuart M.D. 07/16/2020 8:32 AM Hospital Course (1) Diarrhea: This patient is a 80 yo F with DM1, hypothyroidism, neuropathy, overactive bladder, orthostatic hypotension, hyperlipidemia, depression, admitted for intractable nausea/vomiting and mild MICKY due to dehydration in the setting of chronic diarrhea and taking tetracycline recently. Nausea/vomiting-likely secondary to tetracycline side effect causing gastritis. CT abd/pel with thickened distal esophagus -dc tetracycline -antiemetics were given as needed -She was placed on IV pepcid and IV protonix as well as Carafate and had significant improvement within 24 hours. She was tolerating a regular diet very well at the time of discharge. -Stable for discharge to home and will complete a 2-week course of Protonix 40 mg p.o. twice daily x14 days, Carafate 10 g p.o. 4 times daily x14 days -Recommend follow-up with GI for possible EGD given complaint of odynophagia and dysphagia ongoing prior to this admission-gave her the name of tyrese Pearce gastroenterology physician Diarrhea -Ongoing for a long time, related to diabetic diarrhea -Was placed on tetracycline by her thread marker to treat possible SIBO but unfortunately had side effects as above -Follow back up with endocrinology as well as GI for further treatment -Fortunately, she has not had any diarrhea in 4 days-this may be from treat with tetracycline, but may also be because she has had poor p.o. intake until now over the last week -Stool studies were not collected as she had no bowel movement during the entire admission MICKY with chronic renal insufficiency-resolved with IV fluids Sinus Tachycardia secondary to nausea/vomiting, poor p.o. intake and dehydration-resolved Hypothyroidism - cont levothyroxine and follow-up with endocrinology DM1 -No evidence of DKA here -Had hyperglycemia after admission and she was not able to adequately work her pump as she was not feeling well -Insulin pump was removed and she was given Lantus and NovoLog and then had a hypoglycemic event in the middle of the night due to overcorrection -She was improved and stable for discharge and will replace her insulin pump at home when she returns home -Follow-up with endocrinology Hemoglobin A1c 8.0% which is satisfactory for her age and comorbidities Overactive bladder - cont doxepin, mirabegron orthostatic hypotension -Continue midodrine HLD - cont statin DM1 Neuropathy - cont gabapentin DVT ppx: lovenox-however patient declined this injection while here Disposition-stable for discharge home, she was ambulating independently in the room and feeling much improved (2) Nausea & vomiting: (3) Neurogenic claudication: (4) Spinal stenosis of lumbar region: (5) Sacroiliitis: (6) Diabetic peripheral neuropathy associated with type 1 diabetes mellitus: (7) Type 1 diabetes mellitus with complications: (8) Osteopenia: (9) Hypothyroidism: (10) Hypertension: (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: (12) Dyslipidemia: (13) Depression: (14) Chronic renal insufficiency: (15) Pernicious anemia: Total Time Total Time Spent Total Time Spent (In Minutes): 35 min Total Time Includes: Examination of the Patient, Discharge Planning and Medication Reconciliation Discharge Plan Discharge Items Patient Disposition: Home - Self-Care Reason For Visit: DIARRHEA Discharge Diagnosis: Nausea/vomiting, gastritis, dehydration Condition on Discharge: Good Activity: As commented below Lifting: Gradually increase as tolerated Bathing: No limitations Exercise/Sports: Gradually increase as tolerated Non-emergency contact: Primary Care Provider Call non-emergency contact if: you have any medication questions and your symptoms worsen Follow-up/Referrals: Shaquille Matthews MD [Physician] - (Please call to schedule a new patient appointment with [facility] gastroenterology in regards to your difficulty swallowing, your chronic diarrhea, and your recent admission for gastritis.) Meg Hinton MD [Primary Care Provider] - 07/24/20 8:45 am (Please follow-up within 1 to 2 weeks.) Diet: Carb Count or DM1 Addtl Attending Provider Instructions: Please put your insulin pump back on as soon as you get home and continue to check your glucose regularly. You were admitted with nausea and vomiting and likely gastritis which means inflammation of the stomach. This is most likely secondary to side effect of the antibiotic called tetracycline that you are taking. Fortunately, your diarrhea has improved. Please continue to take an antacid called Protonix 40 mg twice daily for the next 2 weeks. You should also take sucralfate liquid 4 times a day to help coat the esophagus and stomach. If you desire to switch to [facility] Gastroenterology, the information for the doctor was provided as above and you can call to schedule the appointment yourself. Pending Studies at Discharge: No Stand-Alone Forms: My [facility] Medications and DC Order Prescriptions: New sucralfate 100 mg/mL Suspension 1 g PO QID 14 Days Qty: 560 RF: 0 pantoprazole [Protonix] 40 mg tablet,delayed release (DR/EC) 40 mg PO BID 14 Days Qty: 28 RF: 0 Continued Myrbetriq 25 mg tablet extended release 24 hr 25 mg PO DAILY RF: 0 doxepin [Silenor] 3 mg tablet 3 mg PO HS PRN (Reason: Unknown) RF: 0 (DME) insulin syringe-needle U-100 [BD SafetyGlide Insulin Syringe] 0.3 mL 31 gauge x 5/16" syringe See Dose Instructions .ROUTE .MEDSUPPLY Qty: 100 RF: 0 atorvastatin 40 mg tablet 40 mg PO DAILY Qty: 90 RF: 1 calcitriol 0.5 mcg capsule 0.5 mcg PO DAILY Qty: 90 RF: 1 gabapentin 300 mg capsule 300 mg PO .COMPLEX Qty: 450 RF: 1 Novolog U-100 Insulin aspart 100 unit/mL solution 60 unit continuous subcutaneous infusion DAILY 90 Days Qty: 60 RF: 1 (DME) Contour Next Test Strips Strip See Rx Instructions .ROUTE .MEDSUPPLY Qty: 400 RF: 3 zoledronic unib-hdqjwvtg-jabom [Reclast] 5 mg/100 mL piggyback 5 mg IV ONCE Qty: 100 RF: 0 mecobalamin (vitamin B12) 1,000 mcg tablet,disintegrating 3,000 mcg sublingual DAILY Qty: 30 RF: 0 midodrine 5 mg tablet 5 mg PO DAILY RF: 0 levothyroxine 100 mcg tablet 100 mcg PO DAILY RF: 0 duloxetine 60 mg capsule,delayed release(DR/EC) 60 mg PO DAILY RF: 0 ipratropium bromide 42 mcg (0.06 %) spray,non-aerosol 1 spray INTRANASAL DAILY PRN (Reason: Congestion) RF: 0 Combigan 0.2-0.5 % drops 1 drp OPB UD RF: 0 Discontinued tetracycline 250 mg capsule 250 mg PO Q6H Qty: 120 RF: 0 Discharge Orders: Discharge Order (Routine); Ordered 07/17/20 Ordered By: Mayda Silver/Other Patient Handouts: Managing Type 1 Diabetes, A1C Admission Data Admit Date/Time: 07/16/20 11:01 Attending Provider: Mayda Smallwood Admit Provider: Joan Bee Primary Care Provider: Meg Hinton Other Providers: Billy England ; Mayda Smallwood Coding Level of Care Code 85009 OBS Care - Discharge Diagnoses Diarrhea R19.7 Nausea & vomiting R11.2 Vomiting Intractability: intractable Vomiting type: unspecified Neurogenic claudication M48.062 Spinal stenosis of lumbar region M48.061 Sacroiliitis M46.1 Diabetic peripheral neuropathy associated with type 1 diabetes mellitus E10.42 Type 1 diabetes mellitus with complications E10.8 Osteopenia M85.80 Hypothyroidism E03.9 Hypertension I10 Baldomero's thyroiditis E06.3 Dyslipidemia E78.5 Depression F32.9 Chronic renal insufficiency N18.9 Pernicious anemia D51.0
[2020-07-17] MEDS ORDERED: INSULIN ASPART 100 UNITS/ML VIAL SC PRN (14:25)
[2020-07-17] MEDS ORDERED: NovoLOG INSULIN PUMP SCH (16:30)
[2020-07-17] MEDS ORDERED: INSULIN GLARGINE SOLOSTAR 100 UNITS/ML 3 ML PEN SC SCH (16:30)
== END 2020-07-17 16:09 | disposition home or self-care (01) ==
LOC: ED 07:47 → 2N 07:47

== ENCOUNTER 2020-09-19 05:46 | Inpatient (IN) ==
--- NOTE | 2020-09-10 09:52 | Anesthesiology Consultation ---
Date of Service September 10, 2020 Assessment & Plan (1) Encounter for pre-operative examination: - Awaiting response from PCP (regarding hyperkalemia and anterior infarct on most recent labs/EKG) as well as surgeon-ordered clearance. - COVID screening: Per assessment on 09/10: Travel screen negative, no known COVID-19 positive contacts or current COVID-19 related symptoms. Patient vaccinated. RN made patient aware the preop Covid testing is required in order to proceed with surgery. Surgeon arranging preop COVID testing. Awaiting results. - Check [facility] AM DOS Chart Review Chart Review: Patient NOT seen in Pre Admission Testing History Surgery Operation Date: 09/19/20 10:20 Proposed Procedures p L3-L4 Decompression Fusion, Spinal Cord Monitoring - Kannan Reza DO Height/Weight Height: 5 ft 7.5 in Weight: 68.039 kg Allergies Allergy/AdvReac Type Severity Reaction Status Date / Time tetracycline AdvReac Intermediate N/V Verified 09/10/20 09:49 (severe) Medications Home Medications Medication Instructions Recorded Confirmed Last Taken mirabegron 25 mg tablet,extended 25 mg PO QAM 06/27/19 09/04/20 Unknown release 24 hr (Myrbetriq) insulin syringe-needle U-100 0.3 #100 ea 08/09/19 07/07/20 Unknown mL 31 gauge x 5/16" (BD SafetyGlide Insulin Syringe) Novolog U-100 Insulin aspart 100 60 unit CONTINUOUS SUBCUTANEOUS 03/06/20 09/04/20 Unknown unit/mL subcutaneous solution INFUSION DAILY 90 Days #60 ml NS (insulin aspart U-100) brimonidine 0.2 %-timolol 0.5 % 1 drp OPB UD 07/16/20 09/04/20 Unknown eye drops (Combigan) duloxetine 60 mg capsule,delayed 60 mg PO QAM 07/16/20 09/04/20 Unknown release (Cymbalta) ipratropium bromide 42 mcg (0.06 1 spray INTRANASAL DAILY PRN 07/16/20 09/04/20 Unknown %) nasal spray levothyroxine 100 mcg tablet 100 mcg PO QAM 07/16/20 09/04/20 Unknown midodrine 5 mg tablet 5 mg PO QAM 07/16/20 09/04/20 Unknown acetone (urine) test (Ketostix) #50 ea 08/06/20 08/06/20 Unknown Contour Next Test Strips (blood #200 ea NS 08/15/20 Unknown sugar diagnostic) ascorbic acid (vitamin C) 1,000 mg 2 g PO QAM 09/04/20 09/04/20 Unknown tablet (Vitamin C) atorvastatin 40 mg tablet 40 mg PO QAM 09/04/20 09/04/20 Unknown biotin 1 mg capsule 1 mg PO QAM 09/04/20 09/04/20 Unknown calcitriol 0.5 mcg capsule 0.5 mcg PO QAM 09/04/20 09/04/20 Unknown calcium carbonate 600 mg (1,500 1 tab PO QAM 09/04/20 09/04/20 Unknown mg)-vitamin D3 200 unit tablet cholecalciferol (vitamin D3) 50 100 mcg PO QAM 09/04/20 09/04/20 Unknown mcg (2,000 unit) capsule (Vitamin D3) cyanocobalamin (vitamin B-12) 1,000 mcg IM MONTHLY 09/04/20 09/04/20 Unknown 1,000 mcg/mL injection solution gabapentin 300 mg capsule 600 mg PO QAM 09/04/20 09/04/20 Unknown gabapentin 300 mg capsule 600 mg PO QDL 09/04/20 09/04/20 Unknown gabapentin 300 mg capsule 900 mg PO HS 09/04/20 09/04/20 Unknown magnesium 200 mg tablet 400 mg PO QAM 09/04/20 09/04/20 Unknown potassium 99 mg tablet 99 mg PO QAM 09/04/20 09/04/20 Unknown vitamin A palmitate 10,000 unit 10,000 unit PO QAM 09/04/20 09/04/20 Unknown capsule zinc 50 mg capsule 50 mg PO QAM 09/04/20 09/04/20 Unknown zoledronic acid 5 mg/100 mL in 5 mg IV UD 09/04/20 09/04/20 Unknown mannitol 5 %-water intravenous piggybck (Reclast) Past Medical History Medical History Aortic stenosis Moderate aortic stenosis (ERICA 1.00cm2, MG 27mmhg) per 04/2020 echo Cancer skin Chronic back pain Chronic renal insufficiency Degenerative disc disease Depression Diabetes mellitus type 1 with insulin pump Diabetic autonomic neuropathy associated with 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 Dyslipidemia GERD (gastroesophageal reflux disease) diet controlled Leon's thyroiditis Hypothyroidism Insomnia Legally blind right eye Neurogenic claudication Osteopenia Post-nasal drip Sciatica Spinal stenosis of lumbar region Past Family History Family History Mother Hypertension Father Cancer Other No family history of adverse response to anesthesia Past Surgical History Surgical History 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 History of adenoidectomy History of appendectomy History of carpal tunnel release left x2 & right x1 History of cataract surgery r/l History of colonoscopy History of dilatation and curettage History of endoscopic sinus surgery "to freeze sinus nerves for PND" History of open reduction and internal fixation (ORIF) procedure Left hip History of open reduction and internal fixation (ORIF) procedure Left wrist x2 and Right wrist x1 History of surgical removal of skin lesion History of tonsillectomy and adenoidectomy History of vitrectomy right eye S/P epidural steroid injection Social History Smoking Status: Former smoker Do You Dip or Chew Tobacco: No Hx Alcohol Use: Yes Alcohol type: wine alcohol intake frequency: 0-2 drinks per day Hx Substance Use: No substance use type: does not use Testing Laboratory Results 09/05/20 WBC 5.2 H/H 10.8/34.1 PLATELETS 396 SODIUM 138 POTASSIUM 5.3 CHLORIDE 106 CO2 29 BUN 20 CREATININE 0.9 GLUCOSE 223 PT 10.1 INR 1.0 UA negative URINE CULTURE mixed bacterial sonali 07/17/20 HGBA1C 8.0% (surgeon's office aware) Electrocardiogram Date: 07/19/20 Normal sinus rhythm at 94 bpm. Possible LAE. LVH by voltage criteria. Anterior infarct, age undetermined. Chest X-Ray Date: 07/16/20 FINDINGS: Nipple shadow projects of the right lung base. Cardiomediastinal and hilar silhouettes are within normal limits. Mild pleural thickening of the lung apices, right greater than left. There is no pneumothorax, pleural effusion, airspace consolidation or overt pulmonary edema. There are healed chronic fractures of the lateral left third and fourth ribs. Degenerative changes of the shoulders and spine. IMPRESSION: No acute process. Mild pleural thickening of the lung apices, right greater than left. Echocardiogram Date: 05/02/20 EF 55%. Mild to moderate LVH. Grade 1 diastolic dysfunction. Moderate aortic stenosis (1.0 cm, MG 27 mmHg). Mild MR. Mild to moderate TR. Physiologic [place].
[2020-09-19] MEDS ORDERED: CeleBREX 200 MG CAP PO SCH (06:00)
[2020-09-19] MEDS ORDERED: GABAPENTIN 300 MG CAP PO SCH (06:00)
[2020-09-19] MEDS ORDERED: ACETAMINOPHEN 500 MG TAB PO SCH (06:00)
[2020-09-19] MEDS ORDERED: LR 15ML/HR IV SCH (06:00)
[2020-09-19] MEDS ORDERED: ceFAZolin 1000MG 1,000 MG/7.5 ML SYR IV SCH (06:00)
[2020-09-19] MEDS ORDERED: GLYCOPYRROLATE 0.2 MG/ML VIAL ONE (06:54)
[2020-09-19] MEDS ORDERED: DEXAMETHASONE SOD INJ 4 MG/ML VIAL ONE (06:54)
[2020-09-19] MEDS ORDERED: PROPOFOL IV EMULSION 10 MG/ML 20 ML VIAL IV ONE (06:54)
[2020-09-19] MEDS ORDERED: LIDOCAINE 2% 2 ML VIAL/AMP(20MG/ML) INFIL ONE (06:54)
[2020-09-19] MEDS ORDERED: NEOSTIGMINE METHYLSULFATE 1 MG/ML 10ML VIAL ONE (06:54)
[2020-09-19] MEDS ORDERED: ONDANSETRON INJ 2 MG/ML 2 ML VIAL ONE (06:54)
[2020-09-19] MEDS ORDERED: fentaNYL citrate 100 MCG/2 ML VIAL ONE (06:54)
[2020-09-19] MEDS ORDERED: BUPIVACAINE 0.5 % 5 MG/1 ML MPF 30ML VIAL ONE (07:03)
[2020-09-19] MEDS ORDERED: EPINEPHrine INJ 1 MG/ML AMP ONE (07:03)
--- NOTE | 2020-09-19 07:26 | History & Physical Bridge Note ---
Date of Service September 19, 2020 History & Physical Bridge Note I have examined the patient, reviewed the History & Physical and in the interval since the performance of the History & Physical I have noted the following changes of clinical significance: no changes noted
--- NOTE | 2020-09-19 07:28 | History & Physical Report ---
Date of Service September 19, 2020 Assessment & Plan (1) Neurogenic claudication due to lumbar spinal stenosis: Plan: L3-L4 decompression fusion History of Present Illness Chief Complaint: Back and leg pain Primary Care Provider: Meg Hinton MD This is a 80-year-old female who presents with chronic persistent back and leg pain after failing course of nonoperative care she is here for surgical intervention. Allergies Allergy/AdvReac Type Severity Reaction Status Date / Time tetracycline AdvReac Intermediate N/V Verified 09/19/20 06:58 (severe) Home Medications Medication Instructions Recorded Confirmed Type mirabegron 25 mg tablet,extended 25 mg PO QAM 06/27/19 09/19/20 History release 24 hr (Myrbetriq) insulin syringe-needle U-100 0.3 #100 ea 08/09/19 07/07/20 Rx mL 31 gauge x 5/16" (BD SafetyGlide Insulin Syringe) Novolog U-100 Insulin aspart 100 60 unit CONTINUOUS SUBCUTANEOUS 03/06/20 09/19/20 Rx unit/mL subcutaneous solution INFUSION DAILY 90 Days #60 ml NS (insulin aspart U-100) brimonidine 0.2 %-timolol 0.5 % 1 drp OPB UD 07/16/20 09/19/20 History eye drops (Combigan) duloxetine 60 mg capsule,delayed 60 mg PO QAM 07/16/20 09/19/20 History release (Cymbalta) ipratropium bromide 42 mcg (0.06 1 spray INTRANASAL DAILY PRN 07/16/20 09/19/20 History %) nasal spray levothyroxine 100 mcg tablet 100 mcg PO QAM 07/16/20 09/19/20 History midodrine 5 mg tablet 5 mg PO QAM 07/16/20 09/19/20 History acetone (urine) test (Ketostix) #50 ea 08/06/20 08/06/20 Rx Contour Next Test Strips (blood #200 ea NS 08/15/20 Rx sugar diagnostic) ascorbic acid (vitamin C) 1,000 mg 2 g PO QAM 09/04/20 09/19/20 History tablet (Vitamin C) atorvastatin 40 mg tablet 40 mg PO QAM 09/04/20 09/19/20 History biotin 1 mg capsule 1 mg PO QAM 09/04/20 09/19/20 History calcitriol 0.5 mcg capsule 0.5 mcg PO QAM 09/04/20 09/19/20 History calcium carbonate 600 mg (1,500 1 tab PO QAM 09/04/20 09/19/20 History mg)-vitamin D3 200 unit tablet cholecalciferol (vitamin D3) 50 100 mcg PO QAM 09/04/20 09/19/20 History mcg (2,000 unit) capsule (Vitamin D3) cyanocobalamin (vitamin B-12) 1,000 mcg IM MONTHLY 09/04/20 09/19/20 History 1,000 mcg/mL injection solution gabapentin 300 mg capsule 600 mg PO QAM 09/04/20 09/19/20 History gabapentin 300 mg capsule 600 mg PO QDL 09/04/20 09/19/20 History gabapentin 300 mg capsule 900 mg PO HS 09/04/20 09/19/20 History magnesium 200 mg tablet 400 mg PO QAM 09/04/20 09/19/20 History potassium 99 mg tablet 99 mg PO QAM 09/04/20 09/19/20 History vitamin A palmitate 10,000 unit 10,000 unit PO QAM 09/04/20 09/19/20 History capsule zinc 50 mg capsule 50 mg PO QAM 09/04/20 09/19/20 History zoledronic acid 5 mg/100 mL in 5 mg IV UD 09/04/20 09/19/20 History mannitol 5 %-water intravenous piggybck (Reclast) Past Med/Surg History Medical History Aortic stenosis Moderate aortic stenosis (ERICA 1.00cm2, MG 27mmhg) per 04/2020 echo Cancer skin Chronic back pain Chronic renal insufficiency Degenerative disc disease Depression Diabetes mellitus type 1 with insulin pump Diabetic autonomic neuropathy associated with 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 Dyslipidemia GERD (gastroesophageal reflux disease) diet controlled Leon's thyroiditis Hypothyroidism Insomnia Legally blind right eye Neurogenic claudication Osteopenia Post-nasal drip Sciatica Spinal stenosis of lumbar region Surgical History 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 History of adenoidectomy History of appendectomy History of carpal tunnel release left x2 & right x1 History of cataract surgery r/l History of colonoscopy History of dilatation and curettage History of endoscopic sinus surgery "to freeze sinus nerves for PND" History of open reduction and internal fixation (ORIF) procedure Left hip History of open reduction and internal fixation (ORIF) procedure Left wrist x2 and Right wrist x1 History of surgical removal of skin lesion History of tonsillectomy and adenoidectomy History of vitrectomy right eye S/P epidural steroid injection Family History Mother Hypertension Father Cancer Other No family history of adverse response to anesthesia Social History Smoking Status: Former smoker Second Hand Exposure: No; Do You Dip or Chew Tobacco: No; Tobacco Cessation Education Requested by Patient: No Hx Alcohol Use: Yes Alcohol type: wine Hx Substance Use: No Preferred Language: Congolese Communication Ability: Effective Visual Impairment: Limited Hearing Ability: Normal Music Cataloguer Required: No Beliefs That Will Affect Care: None marital status: Current Living Situation: Alone current occupational status: retired current occupation: retired Other Information That Helps Us Care for You: No Feels Safe at Home: Yes Safety Concerns: Feels Safe At This Time Assistive Devices: Cane, Glasses and Hearing Aid - Right Assistive Devices Comment: cane prn Physical Exam Physical Exam: Patient is alert and oriented Heart regular rhythm Lungs clear to auscultation Results & Data ([facility]) Vital Signs (Past 12 Hours) Vital Signs Temp Pulse Resp BP Pulse Ox 09/19/20 06:30 37.0 C 82 20 142/76 H 98
[2020-09-19] MEDS ORDERED: ATROPINE SULFATE 0.1 MG/ML 10ML SYR IV PRN (08:04)
[2020-09-19] MEDS ORDERED: ONDANSETRON INJ 2 MG/ML 2 ML VIAL IV PRN ×2 (08:04→10:41)
[2020-09-19] MEDS ORDERED: fentaNYL citrate 100 MCG/2 ML VIAL IV PRN (08:04)
[2020-09-19] MEDS ORDERED: HYDROmorphone INJ 2 MG/ML SYR/VIAL IV PRN (08:04)
[2020-09-19] MEDS ORDERED: ePHEDrine sulfate 50 MG/ML AMP IV PRN (08:04)
[2020-09-19] MEDS ORDERED: ROCURONIUM BROMIDE 10 MG/ML 5 ML VIAL IV ONE (08:29)
[2020-09-19] MEDS ORDERED: HYDROmorphone INJ 2 MG/ML SYR/VIAL ONE (08:33)
[2020-09-19] MEDS ORDERED: PHENYLEPHRINE 100MCG/ML 5ML SYR ONE (08:48)
--- NOTE | 2020-09-19 09:31 | Operative Report ---
Post Operative Report Pre & Post Diagnosis Operation Date: 09/19/20 07:45 Pre-Op Diagnosis: Neurogenic claudication due to lumbar spinal stenosis Post-Op Diagnosis: Neurogenic claudication due to lumbar spinal stenosis I identified the patient and participated in the time-out.: Yes Procedure Operation Date: 09/19/20 07:45 Actual Procedures #1 lumbar decompression with bilateral medial facetectomies and foraminotomies L2-3 L3-4. #2 posterior spinal fusion L3-L4. #3 placement posterior instrumentation L3-L4. #4 interbody fusion L3-L4 per #5 placement peek cage 11 x 22 mm at L3-L4. #6 placement of locally harvested morselized autograft in the posterior gutters. #7 placement of infuse combined master graft and posterior gutters and I factor and interbody space. Surgeon Kannan Reza, Stereotype Caster Mikie Reyna Estimated Blood Loss 75 Findings Consistent with Post-Op Diagnosis Specimens None Indications This is a 80-year-old female who presents with above-mentioned diagnosis after failing since course of nonoperative care she is here for the above-mentioned procedure. Description of Procedure Patient was met with identified informed consent obtained. Patient was then taken to the operative suite underwent ablation placed in a prone position the Lalo table total spine frame. All bony prominences well-padded eyes inspected to ensure no external pressure placed upon the. This point the lumbar spine was prepped and draped in a sterile fashion. Sharp dissection with the assistance pericardial form down to and exposing the lamina and transverse processes of L3 on L4. Several 10 retractors placed. Then performed complete laminectomy of L3 partial laminectomy of L2 including bilateral medial facetectomies and foraminotomies addressing severe spinal stenosis. Pedicle screws were then placed in L3-L4 bilaterally with assistance of fluoroscopy and by way of a transforaminal approach and left complete discectomy was performed endplates curetted to subcortical being bone and the 11 x 22 mm peek cage filled I factor tapped in position. Proper size rods were then placed locked into position bilaterally. The transverse processes of L3 and L4 burred to subcortical bleeding bone. Infuse collagen sponge mass graft local autograft was placed in the posterior gutters. 15 round HAROON drain inserted. Incision was then closed with 1 Vicryl the fascia 2-0 Vicryl subcutaneously and 4 Monocryl for final skin closure. Steri-Strip sterile dressing was placed. Patient will continue PACU stable condition. Please note spinal cord monitoring was utilized at the procedure no changes noted. Lastly Mikie Reyna was present at the entire procedure and all the patient positioning complex portions of the surgery and final skin closure. I attest to the content of the Intraoperative Record and any orders documented therein. Any exceptions are noted below.
[2020-09-19] MEDS ORDERED: FLOSEAL HEMOSTATIC MATRIX 10ML TOP ONE (09:34)
--- NOTE | 2020-09-19 09:56 | Fluoroscopy Report ---
FL lumbar spine 2-3V CLINICAL HISTORY: L3-L4 DECOMPRESSION FUSION COMPARISON STUDY: None. FLUOROSCOPY TIME: 15 seconds. FLUOROSCOPIC IMAGES: FINDINGS: Exact localization is difficult given partial visualization of the lumbar spine however the findings demonstrate an discectomy, posterior decompression and bilateral posterior fusion likely at L3-L4. IMPRESSION: Fluoroscopy provided during L3-L4 decompression and fusion. ACT 112: Negative or not required by law. Electronically signed by: Rafi Arce M.D. 09/19/2020 9:54 AM
--- NOTE | 2020-09-19 10:33 | Anesthesiology Progress Note ---
Date of Service September 19, 2020 Anesthesia Post Procedure Vital Signs Vital Signs: Temp Pulse Resp BP Pulse Ox 09/19/20 10:20 76 6 L 123/58 L 100 09/19/20 10:10 76 6 L 120/61 100 09/19/20 10:00 75 16 117/60 100 09/19/20 09:52 36.4 C L 75 16 128/74 100 09/19/20 06:30 37.0 C 82 20 142/76 H 98 Transfer of Care Handoff Completed per policy Notes Mental Status: alert / awake / arousable and participated in evaluation Patient Amnestic to Procedure: Yes Nausea / Vomiting: adequately controlled Pain: adequately controlled Airway Patency, RR, SpO2: stable & adequate BP & HR: stable & adequate Hydration State: stable & adequate Anesthetic Complications: no major complications apparent
[2020-09-19] MEDS ORDERED: ALUMINUM/MAGNESIUM SUSP 30 ML UDC PO PRN (10:41)
[2020-09-19] MEDS ORDERED: METOCLOPRAMIDE HCL INJ 5 MG/ML 2 ML VIAL IV PRN (10:41)
[2020-09-19] MEDS ORDERED: LORazepam 0.5 MG/1 ML VIAL IV PRN (10:41)
[2020-09-19] MEDS ORDERED: NON-FORMULARY MEDICATION (Brimonidine-Timolol [Combigan] 0.2-0.5 % drops) OPB SCH (10:41)
[2020-09-19] MEDS ORDERED: PHARMACY GLYCEMIC MGMT CONSULT PRN (10:41)
[2020-09-19] MEDS ORDERED: NALOXONE HCL 0.4 MG/1 ML VIAL/CARP IV PRN (10:41)
[2020-09-19] MEDS ORDERED: SOD PHOSPHATE/SOD BIPHOSPHATE ENEMA 132 ML BTL PR PRN (10:41)
[2020-09-19] MEDS ORDERED: HYDROmorphone INJ 1 MG/ML SYRINGE IV PRN (10:41)
[2020-09-19] MEDS ORDERED: DO NOT ADMINISTER PNEUMOCOCCAL VACCINE PRN (10:41)
[2020-09-19] MEDS ORDERED: LORazepam 0.5 MG TAB PO PRN (10:41)
[2020-09-19] MEDS ORDERED: MAGNESIUM HYDROXIDE SUSP 30 ML UDC PO PRN (10:41)
[2020-09-19] MEDS ORDERED: HYDROmorphone INJ 0.5 MG/0.5 ML SYR IV PRN (10:41)
[2020-09-19] MEDS ORDERED: diphenhydrAMINE Capsule 25 MG CAP PO PRN (10:41)
[2020-09-19] MEDS ORDERED: DO NOT ADMINISTER FLU VACCINE PRN (10:41)
[2020-09-19] MEDS ORDERED: FAMOTIDINE 20 MG TAB PO PRN (10:41)
[2020-09-19] MEDS ORDERED: PROMETHAZINE HCL 12.5 MG in SODIUM CHLORIDE 0.9% 50 ML IV PRN (10:41)
[2020-09-19] MEDS ORDERED: bisacodyL 10 MG SUPP PR PRN (10:41)
[2020-09-19] MEDS ORDERED: oxyCODONE HCL IR 5 MG TAB (IMMEDIATE RELEASE) PO PRN (10:41)
[2020-09-19] MEDS ORDERED: ACETAMINOPHEN 1,000 MG/100 ML VIAL IV PRN (10:41)
[2020-09-19] MEDS ORDERED: hydrOXYzine HCl 25 MG TAB PO PRN (10:41)
[2020-09-19] MEDS ORDERED: ONDANSETRON 4 MG OD TAB PO PRN (10:41)
[2020-09-19] MEDS: SODIUM CHLORIDE 0.9% 1000ML 1,000 ML IV SCH ×2 (11:13→21:33)
[2020-09-19] MEDS ORDERED: NovoLIN-N (NPH) PER UNIT CHARGE SQ ONE (11:30)
[2020-09-19] MEDS ORDERED: GLUCOSE 10 TABS/TUBE PO PRN (11:30)
[2020-09-19] MEDS ORDERED: CARBOHYDRATES FOR HYPOGLYCEMIA PO PRN (11:30)
[2020-09-19] MEDS ORDERED: GLUCAGON FOR INJ 1 MG VIAL SQ PRN (11:30)
[2020-09-19] MEDS ORDERED: DEXTROSE 50% 50 ML SYRINGE IV PRN (11:30)
[2020-09-19] MEDS ORDERED: INSULIN ASPART 100 UNITS/ML VIAL SC PRN (11:30)
[2020-09-19] MEDS ORDERED: GLUCOSE 40% GEL 15 GM TUBE PO PRN (11:30)
--- NOTE | 2020-09-19 11:43 | Hospitalist Consultation ---
Date of Consultation September 19, 2020 Assessment & Plan (1) Neurogenic claudication due to lumbar spinal stenosis: - S/p L3-L4 decompression fusion by Dr. Reza on 09/19 - Pain management, bowel regimen per the primary team - PT/OT consults - Follow am CBC to monitor for acute blood loss, hemoglobin of 11.7 on 07/17, monitor with a.m. labs - Pain well controlled presently, bowels moved this morning (2) Type 1 diabetes mellitus with complications: -Last A1c was 8.0 on 07/17/2020 -Glycemic pharmacy on board, scheduled for NPH 60 units tonight, continue insulin pump, prn meds ordered for hypoglycemia - Allow HH/diabetic diet (3) Dyslipidemia: -Continue statin therapy 40 HS (4) Hypothyroidism: - Cont levothyroxine 100 mcg (5) Chronic renal insufficiency: - Follow am bmp - Cr. 0.9 on 09/05 DVT ppx: - teds, scds CODE: Full code Dispo: From home, likely to remain in the hospital x 1-2 days Thank you for involving us in the care of Mrs. Jimenez. Please do not hesitate to call with questions or concerns. At this time medicine service will follow along. Supervising Physician Co-Signing Physician Notes I have seen and examined the patient and have discussed the case with the provider above. I agree with the assessment and plan as stated. 80 yo F recently out of spine surgery. Looking well, denies significant discomfort and currently eating lunch. Physical exam as whit and 3/6 SIXTO across precordium of which the patient has chronically had. Lungs are clear to auscultation and she is mentating clearly. Cont plan per ortho and all current medications. Thank you for allowing us to participate in the care of this patient. Will follow with you throughout the hospital course. DO Dominick History of Present Illness Reason for Consultation: Medical management Requesting Physician: Dr. Reza Attending Physician: Kannan Reza DO History of Present Illness This is a 80-year-old female with PMHx of moderate aortic stenosis, history of PA, HLD, DM type I with insulin pump, chronic renal insufficiency, peripheral neuropathy, hypothyroidism, osteopenia, spinal stenosis who underwent elective L3-L4 decompression fusion by Dr. Reza on 07/20/2020. She reports doing well currently, her pain is minimal, dull and has full sensation down into both of her legs, no numbness or tingling. She is hungry and waiting to eat lunch. Reports that her last bowel movement was early this morning prior to surgery. Denies any other acute complaints. She is on an insulin pump currently and is scheduled to receive extra dose of NPH this evening after having steroid injection with her back surgery today. She reports that her pain is minimal compared to previous fractures of her heel and hip on separate occasions. Allergies Allergy/AdvReac Type Severity Reaction Status Date / Time tetracycline AdvReac Intermediate N/V Verified 09/19/20 06:58 (severe) Home Medications Medication Instructions Recorded Confirmed Type mirabegron 25 mg tablet,extended 25 mg PO QAM 06/27/19 09/19/20 History release 24 hr (Myrbetriq) Novolog U-100 Insulin aspart 100 60 unit CONTINUOUS SUBCUTANEOUS 03/06/20 09/19/20 Rx unit/mL subcutaneous solution INFUSION DAILY 90 Days #60 ml NS (insulin aspart U-100) brimonidine 0.2 %-timolol 0.5 % 1 drp OPB UD 07/16/20 09/19/20 History eye drops (Combigan) duloxetine 60 mg capsule,delayed 60 mg PO QAM 07/16/20 09/19/20 History release (Cymbalta) ipratropium bromide 42 mcg (0.06 1 spray INTRANASAL DAILY PRN 07/16/20 09/19/20 History %) nasal spray levothyroxine 100 mcg tablet 100 mcg PO QAM 07/16/20 09/19/20 History midodrine 5 mg tablet 5 mg PO QAM 07/16/20 09/19/20 History ascorbic acid (vitamin C) 1,000 mg 2 g PO QAM 09/04/20 09/19/20 History tablet (Vitamin C) atorvastatin 40 mg tablet 40 mg PO QAM 09/04/20 09/19/20 History biotin 1 mg capsule 1 mg PO QAM 09/04/20 09/19/20 History calcitriol 0.5 mcg capsule 0.5 mcg PO QAM 09/04/20 09/19/20 History calcium carbonate 600 mg (1,500 1 tab PO QAM 09/04/20 09/19/20 History mg)-vitamin D3 200 unit tablet cholecalciferol (vitamin D3) 50 100 mcg PO QAM 09/04/20 09/19/20 History mcg (2,000 unit) capsule (Vitamin D3) cyanocobalamin (vitamin B-12) 1,000 mcg IM MONTHLY 09/04/20 09/19/20 History 1,000 mcg/mL injection solution gabapentin 300 mg capsule 600 mg PO QAM 09/04/20 09/19/20 History gabapentin 300 mg capsule 600 mg PO QDL 09/04/20 09/19/20 History gabapentin 300 mg capsule 900 mg PO HS 09/04/20 09/19/20 History magnesium 200 mg tablet 400 mg PO QAM 09/04/20 09/19/20 History potassium 99 mg tablet 99 mg PO QAM 09/04/20 09/19/20 History vitamin A palmitate 10,000 unit 10,000 unit PO QAM 09/04/20 09/19/20 History capsule zinc 50 mg capsule 50 mg PO QAM 09/04/20 09/19/20 History zoledronic acid 5 mg/100 mL in 5 mg IV UD 09/04/20 09/19/20 History mannitol 5 %-water intravenous piggybck (Reclast) oxycodone 5 mg tablet 5 mg PO Q6H PRN #30 tab 09/19/20 Rx tramadol 50 mg tablet 50 mg PO Q6H PRN #30 tab 09/19/20 Rx Patient History Medical History Aortic stenosis Moderate aortic stenosis (ERICA 1.00cm2, MG 27mmhg) per 04/2020 echo Cancer skin Chronic back pain Chronic renal insufficiency Degenerative disc disease Depression Diabetes mellitus type 1 with insulin pump Diabetic autonomic neuropathy associated with 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 Dyslipidemia GERD (gastroesophageal reflux disease) diet controlled Leon's thyroiditis Hypothyroidism Insomnia Legally blind right eye Neurogenic claudication Osteopenia Post-nasal drip Sciatica Spinal stenosis of lumbar region Surgical History 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 History of adenoidectomy History of appendectomy History of carpal tunnel release left x2 & right x1 History of cataract surgery r/l History of colonoscopy History of dilatation and curettage History of endoscopic sinus surgery "to freeze sinus nerves for PND" History of open reduction and internal fixation (ORIF) procedure Left hip History of open reduction and internal fixation (ORIF) procedure Left wrist x2 and Right wrist x1 History of surgical removal of skin lesion History of tonsillectomy and adenoidectomy History of vitrectomy right eye S/P epidural steroid injection Family History Mother Hypertension Father Cancer Other No family history of adverse response to anesthesia Social History Smoking Status: Former smoker Second Hand Exposure: No; Do You Dip or Chew Tobacco: No; Tobacco Cessation Education Requested by Patient: No Hx Alcohol Use: Yes Alcohol type: wine Hx Substance Use: No Preferred Language: Chilean Communication Ability: Effective Visual Impairment: Limited Hearing Ability: Normal Inverter And Clipper Required: No Beliefs That Will Affect Care: None marital status: Current Living Situation: Alone current occupational status: retired current occupation: retired Other Information That Helps Us Care for You: No Feels Safe at Home: Yes Safety Concerns: Feels Safe At This Time Assistive Devices: Walker Assistive Devices Comment: cane prn Review of Systems Review of Systems: Constitutional: No fever, sweats or chills Eyes: No diplopia, no worsening or blurred vision ENT: normal hearing, no trouble swallowing Respiratory: No cough, sputum, dyspnea at rest or on exertion Cardiovascular: No chest pain, tightness or palpitations Back: Minimal dull pain, no numbness or tingling Abdomen: No pain, nausea, vomiting, diarrhea or constipation Musculoskeletal: No joint pain, calf pain, swelling Neurologic: No weakness, numbness/tingling, or balance problems Psychiatric: No anxiety or depression Skin: No rash or itch Physical Exam Physical Exam: General: awake, alert, no apparent distress Head: Normocephalic, atraumatic ENT: PERRL, EOMI, no pharyngeal exudate, mucous membranes moist Chest: Clear to auscultation, on room air, no adventitious breath sounds Cardiac: Regular rate and rhythm, + systolic murmur, no JVD, euvolemic, normal peripheral pulses, good capillary refill Abdominal: NABS x 4 quadrants, soft, nondistended, nontender to palpation, no rebound or guarding Back: dressing c/d/i, HAROON drain in place nearly full of bloody fluid (nursing drained at bedside) Extremities: Normal inspection, no peripheral edema or erythema, calfs nontender to palpation Psych: Normal mood and affect Neuro: AAO x 3, strength intact bilaterally and rated 5/5, no motor deficits, speech is clear, no peripheral sensory deficits Results & Data Results & Data ([facility]) Vital Signs (Past 12 Hours) Vital Signs Temp Pulse Resp BP Pulse Ox 09/19/20 10:30 36.4 C L 75 12 117/59 L 100 09/19/20 10:20 76 6 L 123/58 L 100 09/19/20 10:10 76 6 L 120/61 100 09/19/20 10:00 75 16 117/60 100 09/19/20 09:52 36.4 C L 75 16 128/74 100 09/19/20 06:30 37.0 C 82 20 142/76 H 98 Medications Administered Current Inpatient Medications Acetaminophen (Acetaminophen 500 Mg Tab) 1,000 mg PO Q8H PRN PRN Reason: MILD Pain Scale 1,2,3 & Pre PT Stop: 10/19/20 10:40 Al Hydrox/Mg Hydrox/Simethicone (Aluminum/Magnesium Susp 30 Ml Udc) 30 ml PO Q6H PRN PRN Reason: Dyspepsia Stop: 10/19/20 10:40 Ascorbic Acid (Ascorbic Acid 500 Mg Tab) 2,000 mg PO QAM [facility] Stop: 10/20/20 08:59 Atorvastatin Calcium (Atorvastatin 40 Mg Tab) 40 mg PO QAM [facility] Stop: 10/20/20 08:59 Bisacodyl (Bisacodyl 10 Mg Supp) 10 mg FL DAILY PRN PRN Reason: Constipation Stop: 10/19/20 10:40 Brimonidine Tartrate (Brimonidine Tartrate 0.2% 5ml) 1 drops OP BID [facility] Stop: 10/19/20 20:59 Calcitriol (Calcitriol 0.25 Mcg Capsule) 0.5 mcg PO QAM [facility] Stop: 10/20/20 08:59 Dextrose (Dextrose 50% 50 Ml Syringe) 25 - 50 ml IV UD PRN; Protocol PRN Reason: Hypoglycemia Protocol Stop: 10/19/20 11:29 Diphenhydramine HCl (Diphenhydramine Capsule 25 Mg Cap) 25 mg PO Q6H PRN PRN Reason: Allergic Rhinitis/Insomnia Stop: 10/19/20 10:40 Duloxetine HCl (Duloxetine Hcl 60 Mg Cap) 60 mg PO QAM [facility] Stop: 10/20/20 08:59 Famotidine (Famotidine 20 Mg Tab) 20 mg PO Q12H PRN PRN Reason: Dyspepsia Stop: 10/19/20 10:40 Gabapentin (Gabapentin 300 Mg Cap) 600 mg PO QDL [facility] Stop: 10/19/20 11:29 Last Admin: 09/19/20 11:59 Dose: 600 mg Documented by: Gabapentin (Gabapentin 300 Mg Cap) 900 mg PO HS DANGELO Stop: 10/19/20 20:59 Gabapentin (Gabapentin 300 Mg Cap) 600 mg PO QAM [facility] Stop: 10/20/20 08:59 Glucagon (Glucagon For Inj 1 Mg Vial) 1 mg SQ UD PRN; Protocol PRN Reason: Hypoglycemia Protocol Stop: 10/19/20 11:29 Glucose (Glucose 40% Gel 15 Gm Tube) 15 - 30 gm PO UD PRN; Protocol PRN Reason: Hypoglycemia Protocol Stop: 10/19/20 11:29 Glucose (Glucose 10 Tabs/Tube) 4 - 8 tabs PO UD PRN; Protocol PRN Reason: Hypoglycemia Protocol Stop: 10/19/20 11:29 Hydromorphone HCl (Hydromorphone Inj 0.5 Mg/0.5 Ml Syr) 0.5 mg IV Q3H PRN PRN Reason: MOD pain (scale 4-6) & Pre PT Stop: 10/03/20 10:40 Hydromorphone HCl (Hydromorphone Inj 1 Mg/Ml Syringe) 1 mg IV Q3H PRN PRN Reason: severe pain (scale 7-10) Stop: 10/03/20 10:40 Hydroxyzine HCl (Hydroxyzine Hcl 25 Mg Tab) 25 mg PO Q8H PRN PRN Reason: Anxiety Stop: 10/19/20 10:40 Lactated Ringer's (Lr) 1,000 mls @ 15 mls/hr IV .Q24H [facility]ANG[facility]O Stop: 09/20/20 05:59 Last Infusion: 09/19/20 07:45 Dose: Infused Documented by: Sodium Chloride (Nss 1000ml) 1,000 mls @ 100 mls/hr IV .Q10H [facility]ANG[facility] Stop: 10/19/20 10:40 Last Admin: 09/19/20 11:13 Dose: 100 mls/hr Documented by: Promethazine HCl 12.5 mg/ (Sodium Chloride) 50.5 mls @ 202 mls/hr IV Q6H PRN PRN Reason: Nausea &/or Vomiting Stop: 10/19/20 10:40 Acetaminophen (Ofirmev) 1,000 mg in 100 mls @ 400 mls/hr IV Q8H PRN PRN Reason: Pain Rating 1-3 & Pre PT Stop: 09/22/20 10:40 Lorazepam (Ativan) 0.5 mg in 1 mls @ 1 mls/min IV Q8H PRN PRN Reason: Sedation/Anxiety Stop: 10/19/20 10:40 Cefazolin Sodium (Ancef 1000mg) 1,000 mg in 7.5 mls @ 2.5 mls/min IV Q8H [facility]; Protocol Stop: 09/20/20 00:02 Last Admin: 09/19/20 16:30 Dose: 2.5 mls/min Documented by: Influenza Virus Vaccine Quadrival (Do Not Administer Flu Vaccine) 1 ea N/A PRN PRN PRN Reason: Notification Stop: 10/19/20 10:40 Insulin Aspart (Novolog Insulin Pump) 1 ea N/A ACHS [facility]; Protocol Stop: 10/19/20 11:29 Last Admin: 09/19/20 17:47 Dose: 1 ea Documented by: Insulin Aspart (Insulin Aspart 100 Units/Ml Vial) 0 units SC PRN PRN PRN Reason: PUMP REFILL Stop: 10/19/20 11:29 Levothyroxine Sodium (Levothyroxine Sodium 100 Mcg Tablet) 100 mcg PO DAILYBB [facility] Stop: 10/20/20 06:29 Lorazepam (Lorazepam 0.5 Mg Tab) 0.5 mg PO Q8H PRN PRN Reason: sedation/anxiety Stop: 10/19/20 10:40 Magnesium Hydroxide (Magnesium Hydroxide Susp 30 Ml Udc) 30 ml PO Q24H PRN PRN Reason: Constipation Stop: 10/19/20 10:40 Magnesium Oxide (Magnesium Oxide 400 Mg Tab) 400 mg PO QAM [facility] Stop: 10/20/20 08:59 Metoclopramide HCl (Metoclopramide Hcl Inj 5 Mg/Ml 2 Ml Vial) 10 mg IV Q6H PRN PRN Reason: Nausea &/or Vomiting Stop: 10/19/20 10:40 Midodrine (Midodrine Hcl 2.5 Mg Tab) 5 mg PO QAM [facility] Stop: 10/20/20 08:59 Mirabegron (Mirabegron Er 25 Mg Tab) 25 mg PO QAM [facility] Stop: 10/20/20 08:59 Miscellaneous (Carbohydrates For Hypoglycemia ) 15 - 30 gm PO UD PRN PRN Reason: Hypoglycemia Treatment Stop: 10/19/20 11:29 Miscellaneous Information (Pharmacy Glycemic Mgmt Consult) 1 ea N/A UD PRN PRN Reason: Consult Stop: 10/19/20 10:40 Multivitamins/Minerals (Calcium 600mg + Vit D 400 Iu Tab) 1 tab PO QAM [facility] Stop: 10/20/20 08:59 Naloxone HCl (Naloxone Hcl 0.4 Mg/1 Ml Vial/Carp) 0.1 mg IV Q5M PRN PRN Reason: Oversedation/respiratory dep Stop: 10/19/20 10:40 Ondansetron HCl (Ondansetron Inj 2 Mg/Ml 2 Ml Vial) 4 mg IV Q6H PRN PRN Reason: Nausea &/or Vomiting Stop: 10/19/20 10:40 Ondansetron HCl (Ondansetron 4 Mg Od Tab) 4 mg PO Q6H PRN PRN Reason: Nausea Stop: 10/19/20 10:40 Oxycodone HCl (Oxycodone Hcl Ir 5 Mg Tab (Immediate Release)) 5 - 10 mg PO Q4H PRN PRN Reason: Pain & Pre PT Stop: 10/03/20 10:40 Pneumococcal Polyvalent Vaccine (Do Not Administer Pneumococcal Vaccine) 1 ea N/A PRN PRN PRN Reason: Notification Stop: 10/19/20 10:40 Polyethylene Glycol (Polyethylene (Miralax) 17 Gm Pack) 17 gm PO Q6 [facility] Stop: 10/20/20 05:59 Senna/Docusate Sodium (Docusate Sodium/Senna 50/8.6mg Tab) 2 tab PO HS [facility]ANG[facility] Stop: 10/19/20 20:59 Sodium Biphosphate/Sodium Phosphate (Sod Phosphate/Sod Biphosphate Enema 132 Ml Btl) 132 ml FL ONE PRN PRN Reason: Constipation Stop: 10/19/20 10:40 Timolol Maleate (Timolol Maleate 0.5% Op Soln 5 Ml Btl) 1 drops OP BID [facility] Stop: 10/19/20 20:59 Tramadol HCl (Tramadol Hcl 50 Mg Tablet) 50 - 100 mg PO Q4H PRN PRN Reason: Moderate-Severe pain & Pre PT Stop: 10/19/20 10:40 Last Admin: 09/19/20 16:29 Dose: 100 mg Documented by: Zinc Sulfate (Zinc Sulfate 220 Mg Capsule) 220 mg PO QAM [facility] Stop: 10/20/20 08:59
[2020-09-19] MEDS: GABAPENTIN 300 MG CAP PO SCH ×2 (11:59→20:32)
[2020-09-19] MEDS: NovoLOG INSULIN PUMP SCH ×3 (12:43→20:41)
--- NOTE | 2020-09-19 12:49 | Pharmacy Report ---
Pharmacy Glycemic Short Note 2 - Date of Service September 19, 2020 - Glycemic Short BSG Results (Last 24 hours): 09/19/20 09/19/20 09/19/20 06:12 08:52 10:03 POC Glucose 172 H 215 H 229 H OUTPATIENT ANTIDIABETIC REGIMEN: * Novolog Insulin Pump * Basal rate: 14units/day * CF 50 mg/dl/unit * CR 1:14 * Goal range 130-170mg/dl ASSESSMENT: * 80 year old s/p spinal decompression and fusion by Dr Reza, Type 1 diabetic on insulin pump as above, just spoke with her and discussed her desires, she would like to keep her pump on while inpatient. I discussed the IV Dexamethasone and the need to cover for it's effects on her blood sugar. She would like to do supplemental NPH doses as she is not confident to adjust her CR or basal rate on her pump. Patient has all of her pump supplies with her. * Pump is on at this time, was not removed prior to surgery, hyperglycemic d/t turning it off for low blood sugar of 53mg/dl this morning. * Patient to continue on insulin pump at this time with supplemental NPH dose to cover IV Dexamethasone. PLAN FOR INPATIENT GLYCEMIC CONTROL: * Basal insulin * NPH 20 units (0.3mg/kg) SQ x 1 dose now to cover IV Dexamethasone * Novolog insulin pump as above PLAN FOR DISCHARGE: * A1c 8%, at goal for patient's age and comorbidities.
[2020-09-19] MEDS: traMADol HCL 50 MG TABLET PO PRN (16:29)
[2020-09-19] MEDS: ceFAZolin 1000MG 1,000 MG/7.5 ML SYR IV SCH (16:30)
[2020-09-19] MEDS ORDERED: COUGH DROP (SUGAR FREE) LOZ 24 LOZ/1 BOX BUCCAL ONE (18:47)
[2020-09-19] MEDS: BRIMONIDINE TARTRATE 0.2% 5ML OP SCH (20:29)
[2020-09-19] MEDS: TIMOLOL MALEATE 0.5% OP SOLN 5 ML BTL OP SCH (20:29)
[2020-09-19] MEDS: DOCUSATE SODIUM/SENNA 50/8.6MG TAB PO SCH (20:35)
[2020-09-20] MEDS: ceFAZolin 1000MG 1,000 MG/7.5 ML SYR IV SCH (00:54)
[2020-09-20] MEDS: POLYETHYLENE (MIRALAX) 17 GM PACK PO SCH ×3 (05:47→17:58)
[2020-09-20] MEDS: MIDODRINE HCL 2.5 MG TAB PO SCH (06:23)
[2020-09-20] MEDS: LEVOTHYROXINE SODIUM 100 MCG TABLET PO SCH (06:23)
[2020-09-20 06:28] LABS: Basophils # (auto) 0.02 K/uL (0-0.2); Basophils % (auto) 0.2 %; Eosinophils # (auto) 0.04 K/uL (0-0.5); Eosinophils % (auto) 0.4 %; Hematocrit (blood only) 28.2 % (37-47); Hemoglobin 8.9 g/dL (12.0-16.0); Immature Granulocytes # (auto) 0.03 K/uL (0.00-0.02); Immature Granulocytes % (auto) 0.3 %; Lymphocytes # (auto) 1.19 K/uL (1.2-3.4); Lymphocytes % (auto) 11.9 %; Mean Corpuscular Hgb Conc 31.6 g/dL (32-36); Mean Corpuscular Volume 91.9 fL (80-100); Mean Platelet Volume 9.6 fL (7.4-10.4); Monocytes # (auto) 0.95 K/uL (0.11-0.59); Monocytes % (auto) 9.5 %; Neutrophils # (auto) 7.75 K/uL (1.4-6.5); Neutrophils % (auto) 77.7 %; Platelet Count 242 K/uL (130-400); RDW Coefficient of Variation 14.7 % (11.5-14.5); RDW Standard Deviation 48.7 fL (36.4-46.3); Red Blood Count 3.07 M/uL (4.2-5.4); White Blood Count 9.98 K/uL (4.8-10.8)
[2020-09-20 07:06] LABS: BUN Creatinine Ratio 21.4 (10-20); Calcium 8.5 mg/dl (8.5-10.1); Creatinine Clr Calc Pharmacy 40.7 ml/min; Est GFR (African American) 54.7 ml/min; Est GFR (Non-African American) 47.2 ml/min; Potassium 4.4 mmol/L (3.5-5.1)
[2020-09-20] MEDS: ZINC SULFATE 220 MG CAPSULE PO SCH (07:39)
[2020-09-20] MEDS: MAGNESIUM OXIDE 400 MG TAB PO SCH (07:40)
[2020-09-20] MEDS: MIRABEGRON ER 25 MG TAB PO SCH (07:40)
[2020-09-20] MEDS: CALCIUM 600MG + VIT D 400 IU TAB PO SCH (07:41)
[2020-09-20] MEDS: CALCITRIOL 0.25 MCG CAPSULE PO SCH (07:42)
[2020-09-20] MEDS: ATORVASTATIN 40 MG TAB PO SCH (07:42)
[2020-09-20] MEDS: ASCORBIC ACID 500 MG TAB PO SCH (07:43)
[2020-09-20] MEDS: GABAPENTIN 300 MG CAP PO SCH ×5 (07:44→19:39)
[2020-09-20] MEDS: DULoxetine HCL 60 MG CAP PO SCH (07:44)
[2020-09-20] MEDS: BRIMONIDINE TARTRATE 0.2% 5ML OP SCH ×2 (07:45→19:40)
[2020-09-20] MEDS: TIMOLOL MALEATE 0.5% OP SOLN 5 ML BTL OP SCH ×2 (07:46→19:38)
[2020-09-20] MEDS: NovoLOG INSULIN PUMP SCH ×4 (08:43→21:22)
[2020-09-20] MEDS ORDERED: NON-FORMULARY MEDICATION (Potassium 99 mg Tablet) PO SCH (09:00)
[2020-09-20] MEDS ORDERED: VITAMIN A PALMITATE 10000 UNIT PO SCH (09:00)
[2020-09-20] MEDS ORDERED: NON-FORMULARY MEDICATION (Cholecalciferol (Vitamin D3) [Vitamin D3] 50 mcg (2,000 unit) Ca PO SCH (09:00)
--- NOTE | 2020-09-20 10:53 | Orthopedic Progress Note ---
Date of Service September 20, 2020 Assessment & Plan (1) Neurogenic claudication due to lumbar spinal stenosis: Plan: This time we will initiate physical therapy monitor HAROON output anticipate discharge home in next few days. Admission and Anticipated Discharge Date Admission Date: September 19, 2020 Subjective Back pain controlled leg symptoms improved Physical Exam Physical Exam: Patient is in a chair at the bedside. She is alert and oriented. Good strength testing. Appears comfortable. Results & Data ([facility]) Vital Signs (Past 12 Hours) Vital Signs Temp Pulse Resp BP Pulse Ox 09/20/20 07:11 109/66 09/20/20 07:09 108/69 09/20/20 07:07 36.5 C 92 H 16 150/80 H 98 09/20/20 02:38 88 89/50 L 09/20/20 02:35 36.5 C 80 15 128/71 98 09/19/20 23:29 36.4 C L 85 14 92/55 L 94
--- NOTE | 2020-09-20 17:21 | Hospitalist Progress Note ---
Date of Service September 20, 2020 Assessment & Plan (1) Neurogenic claudication due to lumbar spinal stenosis: Plan: - S/p L3-L4 decompression fusion by Dr. Reza on 09/19 - Pain management, bowel regimen per the primary team - PT/OT consults - Follow am CBC to monitor for acute blood loss, hemoglobin of 11.7 on 07/17, monitor with a.m. labs - Pain well controlled presently, bowels moved a.m. of September 19, 2020 -Hemoglobin remains stable at 8.9 and electrolytes are normal -We will monitor (2) Type 1 diabetes mellitus with complications: Plan: -Last A1c was 8.0 on 07/17/2020 -Glycemic pharmacy on board, scheduled for NPH 60 units tonight, continue insulin pump, prn meds ordered for hypoglycemia - Allow HH/diabetic diet (3) Dyslipidemia: Plan: -Continue statin therapy 40 HS (4) Hypothyroidism: Plan: - Cont levothyroxine 100 mcg (5) Chronic renal insufficiency: Plan: - Follow am bmp - Cr. 0.9 on 09/05 DVT ppx: - teds, scds CODE: Full code Dispo: From home, likely to remain in the hospital x 1-2 days Admission and Anticipated Discharge Date Admission Date: September 19, 2020 Subjective September 20, 2020 The patient was seen and examined in medical floor She is a status post L3-L4 decompression and fusion Has some pain at the back but denies any other symptoms Review of Systems Review of Systems: All systems reviewed and are unremarkable except as noted below Physical Exam Physical Exam: Lying in bed comfortably Constitutional: WD/WN, vitals as above Eyes: PERRL, conjunctivae normal, anicteric sclerae ENMT: external ear and nose normal, oropharynx normal Neck: trachea midline, no thyromegaly Respiratory: no respiratory distress and no cough Auscultation: lungs clear to auscultation bilaterally Cardiovascular: Rate/Rhythm: regular rate and regular rhythm; not tachycardic Heart Sounds: normal S1, normal S2 and + murmur (Over 6 ejection murmur over precordium) Gastrointestinal (Abdomen): normal bowel sounds, soft, nontender, no hepatosplenomegaly Musculoskeletal: No acute arthritis in any joint. Status post back surgery Neurologic: Alert, awake and oriented x3 Results & Data Results & Data ([place]) Vital Signs (Past 12 Hours) Vital Signs Temp Pulse Resp BP Pulse Ox 09/20/20 15:10 36.9 C 92 H 16 135/72 96 09/20/20 12:23 36.6 C 93 H 18 125/71 100 09/20/20 07:11 109/66 09/20/20 07:09 108/69 09/20/20 07:07 36.5 C 92 H 16 150/80 H 98 Laboratory Results Short CBC 09/20/20 Range/Units 05:56 WBC 9.98 (4.8-10.8) K/uL Hgb 8.9 L (12.0-16.0) g/dL Hct 28.2 L (37-47) % Plt Count 242 (130-400) K/uL BMP 09/20/20 05:56 Sodium 137 Potassium 4.4 D Chloride 103 Carbon Dioxide 30 BUN 24 H Creatinine 1.11 Glucose 90 Calcium 8.5 Medications Administered Current Inpatient Medications Acetaminophen (Acetaminophen 500 Mg Tab) 1,000 mg PO Q8H PRN PRN Reason: MILD Pain Scale 1,2,3 & Pre PT Stop: 10/19/20 10:40 Al Hydrox/Mg Hydrox/Simethicone (Aluminum/Magnesium Susp 30 Ml Udc) 30 ml PO Q6H PRN PRN Reason: Dyspepsia Stop: 10/19/20 10:40 Ascorbic Acid (Ascorbic Acid 500 Mg Tab) 2,000 mg PO [facility] Stop: 10/20/20 08:59 Last Admin: 09/20/20 07:43 Dose: 2,000 mg Documented by: Atorvastatin Calcium (Atorvastatin 40 Mg Tab) [facility] Stop: 10/20/20 08:59 Last Admin: 09/20/20 07:42 Dose: 40 mg Documented by: Bisacodyl (Bisacodyl 10 Mg Supp) 10 mg AR DAILY PRN PRN Reason: Constipation Stop: 10/19/20 10:40 Brimonidine Tartrate (Brimonidine Tartrate 0.2% 5ml) 1 drops OP BID [facility] Stop: 10/19/20 20:59 Last Admin: 09/20/20 07:45 Dose: 1 drops Documented by: Calcitriol (Calcitriol 0.25 Mcg Capsule) 0.5 mcg [facility] Stop: 10/20/20 08:59 Last Admin: 09/20/20 07:42 Dose: 0.5 mcg Documented by: Dextrose (Dextrose 50% 50 Ml Syringe) 25 - 50 ml IV UD PRN; Protocol PRN Reason: Hypoglycemia Protocol Stop: 10/19/20 11:29 Diphenhydramine HCl (Diphenhydramine Capsule 25 Mg Cap) 25 mg PO Q6H PRN PRN Reason: Allergic Rhinitis/Insomnia Stop: 10/19/20 10:40 Duloxetine HCl (Duloxetine Hcl 60 Mg Cap) 60 mg PO QAM [facility] Stop: 10/20/20 08:59 Last Admin: 09/20/20 07:44 Dose: 60 mg Documented by: Famotidine (Famotidine 20 Mg Tab) 20 mg PO Q12H PRN PRN Reason: Dyspepsia Stop: 10/19/20 10:40 Gabapentin (Gabapentin 300 Mg Cap) 600 mg PO QDL [facility] Stop: 10/19/20 11:29 Last Admin: 09/20/20 12:34 Dose: Not Given Documented by: Gabapentin (Gabapentin 300 Mg Cap) 900 mg PO HS [facility] Stop: 10/19/20 20:59 Last Admin: 09/19/20 20:32 Dose: 900 mg Documented by: Gabapentin (Gabapentin 300 Mg Cap) 600 mg PO QAM [facility] Stop: 10/20/20 08:59 Last Admin: 09/20/20 12:29 Dose: 600 mg Documented by: Glucagon (Glucagon For Inj 1 Mg Vial) 1 mg SQ UD PRN; Protocol PRN Reason: Hypoglycemia Protocol Stop: 10/19/20 11:29 Glucose (Glucose 40% Gel 15 Gm Tube) 15 - 30 gm PO UD PRN; Protocol PRN Reason: Hypoglycemia Protocol Stop: 10/19/20 11:29 Glucose (Glucose 10 Tabs/Tube) 4 - 8 tabs PO UD PRN; Protocol PRN Reason: Hypoglycemia Protocol Stop: 10/19/20 11:29 Hydromorphone HCl (Hydromorphone Inj 0.5 Mg/0.5 Ml Syr) 0.5 mg IV Q3H PRN PRN Reason: MOD pain (scale 4-6) & Pre PT Stop: 10/03/20 10:40 Hydromorphone HCl (Hydromorphone Inj 1 Mg/Ml Syringe) 1 mg IV Q3H PRN PRN Reason: severe pain (scale 7-10) Stop: 10/03/20 10:40 Hydroxyzine HCl (Hydroxyzine Hcl 25 Mg Tab) 25 mg PO Q8H PRN PRN Reason: Anxiety Stop: 10/19/20 10:40 Promethazine HCl 12.5 mg/ (Sodium Chloride) 50.5 mls @ 202 mls/hr IV Q6H PRN PRN Reason: Nausea &/or Vomiting Stop: 10/19/20 10:40 Acetaminophen (Ofirmev) 1,000 mg in 100 mls @ 400 mls/hr IV Q8H PRN PRN Reason: Pain Rating 1-3 & Pre PT Stop: 09/22/20 10:40 Lorazepam (Ativan) 0.5 mg in 1 mls @ 1 mls/min IV Q8H PRN PRN Reason: Sedation/Anxiety Stop: 10/19/20 10:40 Influenza Virus Vaccine Quadrival (Do Not Administer Flu Vaccine) 1 ea N/A PRN PRN PRN Reason: Notification Stop: 10/19/20 10:40 Insulin Aspart (Novolog Insulin Pump) 1 ea N/A [facility]; Protocol Stop: 10/19/20 11:29 Last Admin: 09/20/20 12:26 Dose: 1 ea Documented by: Insulin Aspart (Insulin Aspart 100 Units/Ml Vial) 0 units SC PRN PRN PRN Reason: PUMP REFILL Stop: 10/19/20 11:29 Levothyroxine Sodium (Levothyroxine S[facility] 100 Mcg Tablet) [facility]: 10/20/20 06:29 Last Admin: 09/20/20 06:23 Dose: 100 mcg Documented by: Lorazepam (Lorazepam 0.5 Mg Tab) 0.5 mg PO Q8H PRN PRN Reason: sedation/anxiety Stop: 10/19/20 10:40 Magnesium Hydroxide (Magnesium Hydroxide Susp 30 Ml Udc) 30 ml PO Q24H PRN PRN Reason: Constipation Stop: 10/19/20 10:40 Magnesium Oxide (Magnesium Oxide 400 Mg Tab) 400 [facility] Stop: 10/20/20 08:59 Last Admin: 09/20/20 07:40 Dose: 400 mg Documented by: Metoclopramide HCl (Metoclopramide Hcl Inj 5 Mg/Ml 2 Ml Vial) 10 mg IV Q6H PRN PRN Reason: Nausea &/or Vomiting Stop: 10/19/20 10:40 Midodrine (Midodrine Hcl 2.5 Mg Tab) 5 mg PO QAM [facility] Stop: 10/20/20 08:59 Last Admin: 09/20/20 06:23 Dose: 5 mg Documented by: Mirabegron (Mirabegron Er 25 Mg Tab) 25 mg PO QAM [facility] Stop: 10/20/20 08:59 Last Admin: 09/20/20 07:40 Dose: 25 mg Documented by: Miscellaneous (Carbohydrates For Hypoglycemia ) 15 - 30 gm PO UD PRN PRN Reason: Hypoglycemia Treatment Stop: 10/19/20 11:29 Miscellaneous Information (Pharmacy Glycemic Mgmt Consult) 1 ea N/A UD PRN PRN Reason: Consult Stop: 10/19/20 10:40 Multivitamins/Minerals (Calcium 600mg + Vit D 400 Iu Tab) 1 [facility] Stop: 10/20/20 08:59 Last Admin: 09/20/20 07:41 Dose: 1 tab Documented by: Naloxone HCl (Naloxone Hcl 0.4 Mg/1 Ml Vial/Carp) 0.1 mg IV Q5M PRN PRN Reason: Oversedation/respiratory dep Stop: 10/19/20 10:40 Ondansetron HCl (Ondansetron Inj 2 Mg/Ml 2 Ml Vial) 4 mg IV Q6H PRN PRN Reason: Nausea &/or Vomiting Stop: 10/19/20 10:40 Ondansetron HCl (Ondansetron 4 Mg Od Tab) 4 mg PO Q6H PRN PRN Reason: Nausea Stop: 10/19/20 10:40 Oxycodone HCl (Oxycodone Hcl Ir 5 Mg Tab (Immediate Release)) 5 - 10 mg PO Q4H PRN PRN Reason: Pain & Pre PT Stop: 10/03/20 10:40 Pneumococcal Polyvalent Vaccine (Do Not Administer Pneumococcal Vaccine) 1 ea N/A PRN PRN PRN Reason: Notification Stop: 10/19/20 10:40 Polyethylene Glycol (Polyethylene (Miralax) 17 Gm Pack) 17 gm PO Q6 [facility] Stop: 10/20/20 05:59 Last Admin: 09/20/20 12:30 Dose: 17 gm Documented by: Senna/Docusate Sodium (Docusate Sodium/Senna 50/8.6mg Tab) 2 tab PO HS [facility] Stop: 10/19/20 20:59 Last Admin: 09/19/20 20:35 Dose: Not Given Documented by: Sodium Biphosphate/Sodium Phosphate (Sod Phosphate/Sod Biphosphate Enema 132 Ml Btl) 132 ml AR ONE PRN PRN Reason: Constipation Stop: 10/19/20 10:40 Timolol Maleate (Timolol Maleate 0.5% Op Soln 5 Ml Btl) 1 drops OP BID [facility] Stop: 10/19/20 20:59 Last Admin: 09/20/20 07:46 Dose: 1 drops Documented by: Tramadol HCl (Tramadol Hcl 50 Mg Tablet) 50 - 100 mg PO Q4H PRN PRN Reason: Moderate-Severe pain & Pre PT Stop: 10/19/20 10:40 Last Admin: 09/19/20 16:29 Dose: 100 mg Documented by: Zinc Sulfate (Zinc Sulfate 220 Mg Capsule) 220 mg PO QAM [facility] Stop: 10/20/20 08:59 Last Admin: 09/20/20 07:39 Dose: 220 mg Documented by:
[2020-09-20] MEDS: traMADol HCL 50 MG TABLET PO PRN (19:36)
[2020-09-20] MEDS: DOCUSATE SODIUM/SENNA 50/8.6MG TAB PO SCH (19:40)
--- NOTE | 2020-09-20 21:30 | Hospitalist Progress Note ---
Date of Service September 20, 2020 Assessment & Plan Admission and Anticipated Discharge Date Admission Date: September 19, 2020 Subjective Code purple was called as patient passed out while ambulating to go to bathroom. Nursing staff was with patient when this episode happened. She slowly slipped to the ground. No injury. Passed out for 30-40 seconds as per the staff. Currently alert and awake and seems oriented. Sugars were ok. Vital stable currently. Patient denies any chest pain headache or neck pain or nausea. Doing fine currently. Patient has history of Autonomic postural hypotension. Takes midodrine. Will continue to monitor . If recurs will transfer to tele. Results & Data Results & Data ([facility]) Vital Signs (Past 12 Hours) Vital Signs Temp Pulse Resp BP Pulse Ox 09/20/20 15:10 36.9 C 92 H 16 135/72 96 09/20/20 12:23 36.6 C 93 H 18 125/71 100
[2020-09-21] MEDS: POLYETHYLENE (MIRALAX) 17 GM PACK PO SCH ×5 (00:22→23:25)
[2020-09-21] MEDS: LEVOTHYROXINE SODIUM 100 MCG TABLET PO SCH (05:34)
[2020-09-21] MEDS: SODIUM CHLORIDE 0.9% 1000ML 1,000 ML IV SCH ×2 (06:14→16:52)
[2020-09-21] MEDS: ACETAMINOPHEN 500 MG TAB PO PRN ×2 (06:19→21:00)
[2020-09-21 06:25] LABS: Basophils # (auto) 0.02 K/uL (0-0.2); Basophils % (auto) 0.2 %; Eosinophils # (auto) 0.16 K/uL (0-0.5); Eosinophils % (auto) 1.8 %; Hematocrit (blood only) 28.2 % (37-47); Immature Granulocytes # (auto) 0.01 K/uL (0.00-0.02); Immature Granulocytes % (auto) 0.1 %; Lymphocytes # (auto) 1.49 K/uL (1.2-3.4); Mean Corpuscular Hemoglobin 29.5 pg (25-34); Mean Corpuscular Hgb Conc 31.9 g/dL (32-36); Mean Corpuscular Volume 92.5 fL (80-100); Mean Platelet Volume 9.7 fL (7.4-10.4); Monocytes # (auto) 1.12 K/uL (0.11-0.59); Monocytes % (auto) 12.8 %; Neutrophils # (auto) 5.95 K/uL (1.4-6.5); Neutrophils % (auto) 68.1 %; Platelet Count 226 K/uL (130-400); RDW Coefficient of Variation 14.9 % (11.5-14.5); RDW Standard Deviation 50.6 fL (36.4-46.3); Red Blood Count 3.05 M/uL (4.2-5.4); White Blood Count 8.75 K/uL (4.8-10.8)
[2020-09-21 07:04] LABS: BUN Creatinine Ratio 21.3 (10-20); Calcium 8.7 mg/dl (8.5-10.1); Creatinine Clr Calc Pharmacy 45.2 ml/min; Est GFR (African American) 62.1 ml/min; Est GFR (Non-African American) 53.5 ml/min; Potassium 4.5 mmol/L (3.5-5.1)
--- NOTE | 2020-09-21 07:35 | Orthopedic Progress Note ---
Date of Service September 21, 2020 Assessment & Plan (1) Neurogenic claudication due to lumbar spinal stenosis: Plan: At this point the patient is actively being transferred from the orthopedic floor to telemetry. Her syncopal episodes are likely due to her elevated blood sugars as well at her fluid status. Medicine will continue to help control the medical circumstances. We will try to use minimal amounts of narcotic. We will continue to follow. Admission and Anticipated Discharge Date Admission Date: September 19, 2020 Subjective Patient is postop day #2 status post lumbar decompression and fusion at L3-4. Over the past 24 hours she has had 2 episodes that were documented of her losing consciousness. Last night she fell to the floor had a gentle fashion while going to the bathroom. This morning she had a similar episode. She was evaluated by medicine and is being transferred at this point to the telemetry floor. Physical Exam Physical Exam: The patient's blood sugars have ranged from the mid 100s to the mid 200s. Her hematocrit is 28.2 hemoglobin is 9.0 her HAROON drain placed out 20 cc on overnight shift and 30 cc on evening. Results & Data ([facility]) Vital Signs (Past 12 Hours) Vital Signs Temp Pulse Resp BP BP Pulse Ox 09/21/20 05:44 101 H 91/57 L 09/21/20 02:16 37.4 C 87 18 122/69 94 09/20/20 21:41 36.8 C 92 H 18 175/85 H 100 09/20/20 21:22 96 H 16 167/89 H 99
[2020-09-21] MEDS: ASCORBIC ACID 500 MG TAB PO SCH (08:18)
[2020-09-21] MEDS: GABAPENTIN 300 MG CAP PO SCH ×3 (08:18→20:59)
[2020-09-21] MEDS: MIDODRINE HCL 2.5 MG TAB PO SCH (08:19)
[2020-09-21] MEDS: DULoxetine HCL 60 MG CAP PO SCH (08:19)
[2020-09-21] MEDS: MIRABEGRON ER 25 MG TAB PO SCH (08:19)
[2020-09-21] MEDS: ATORVASTATIN 40 MG TAB PO SCH (08:19)
[2020-09-21] MEDS: CALCITRIOL 0.25 MCG CAPSULE PO SCH (08:20)
[2020-09-21] MEDS: CALCIUM 600MG + VIT D 400 IU TAB PO SCH (08:20)
[2020-09-21] MEDS: MAGNESIUM OXIDE 400 MG TAB PO SCH (08:20)
[2020-09-21] MEDS: ZINC SULFATE 220 MG CAPSULE PO SCH (08:20)
[2020-09-21] MEDS: NovoLOG INSULIN PUMP SCH ×4 (08:21→21:31)
[2020-09-21] MEDS: BRIMONIDINE TARTRATE 0.2% 5ML OP SCH ×2 (08:22→21:00)
[2020-09-21] MEDS: TIMOLOL MALEATE 0.5% OP SOLN 5 ML BTL OP SCH ×2 (08:22→21:00)
--- NOTE | 2020-09-21 12:31 | Pharmacy Report ---
Pharmacy Glycemic Short Note 2 - Date of Service September 21, 2020 - Glycemic Short BSG Results (Last 24 hours): 09/20/20 09/20/20 09/20/20 12:22 17:23 21:08 Glucose POC Glucose 204 H 119 H 213 H 09/21/20 09/21/20 09/21/20 02:14 05:27 08:04 Glucose 236 H POC Glucose 220 H 319 H* 09/21/20 09/21/20 08:05 11:16 Glucose POC Glucose 347 H* 248 H OUTPATIENT ANTIDIABETIC REGIMEN: * Novolog Insulin Pump * Basal rate: 14units/day * CF 50 mg/dl/unit * CR 1:14 * Goal range 130-170mg/dl * HbA1c = 8% (07/17/20) ASSESSMENT: 09/21: * Patient's BSGs have not been well controlled on her own insulin pump * BSGs: [phone] mg/dL * Patient has issues with nocturnal/fasting hypoglycemia as an outpatient. Per produce specialist last note, also has issues with hypoglycemic unawareness. * She was instructed not to bolus herself at HS on 09/20 in hopes of prevent nocturnal/fasting hypoglycemia. Unfortunately, this resulted in a fasting BSG of 347 mg/dL. * Spoke with RN when lunchtime BSG returned at 248 mg/dL with my concern that patient's infusion set/tubing may need replaced. Also, explained that it may be necessary to switch to basal bolus insulin as tight glycemic control is warranted to prevent postop infections. RN spoke with patient and patient refused to change her set. It was last changed on (09/18). * Instructed patient to bolus herself tonight. Will continue with pump for now. 09/19: * 80 year old s/p spinal decompression and fusion by Dr Reza, Type 1 diabetic on insulin pump as above, just spoke with her and discussed her desires, she would like to keep her pump on while inpatient. I discussed the IV Dexamethasone and the need to cover for it's effects on her blood sugar. She would like to do supplemental NPH doses as she is not confident to adjust her CR or basal rate on her pump. Patient has all of her pump supplies with her. * Pump is on at this time, was not removed prior to surgery, hyperglycemic d/t turning it off for low blood sugar of 53mg/dl this morning. * Patient to continue on insulin pump at this time with supplemental NPH dose to cover IV Dexamethasone. PLAN FOR INPATIENT GLYCEMIC CONTROL: * Novolog insulin pump as above PLAN FOR DISCHARGE: * HbA1c was 8%. Patient follows with [facility] Endocrinology who state she has a goal HbA1c of 7.6%. Consider adjust bolus dosing given issues with nocturnal/fasting hypoglycemia or adjust basal rate during this time.
--- NOTE | 2020-09-21 13:47 | Hospitalist Progress Note ---
Date of Service September 21, 2020 Assessment & Plan (1) Neurogenic claudication due to lumbar spinal stenosis: Plan: - S/p L3-L4 decompression fusion by Dr. Reza on 09/19 - Pain management, bowel regimen per the primary team - PT/OT consults - Follow am CBC to monitor for acute blood loss, hemoglobin of 11.7 on 07/17, monitor with a.m. labs - Pain well controlled presently, bowels moved a.m. of September 19, 2020 -Hemoglobin remains stable at 8.9 and electrolytes are normal -Her hemoglobin and electrolytes are unremarkable (2) Syncope: Plan: Has had syncopal episode last evening while she was in the bathroom She has a history of syncope in the past with negative work-up She was noted to be very orthostatic in telemetry unit as below: Due to significant orthostasis Lying blood pressure 123/67 and sitting 78/48 and could not stand due to ongoing dizziness We will continue intravenous fluid for now and keep her in telemetry unit for tonight Repeat orthostatics in the morning (3) Type 1 diabetes mellitus with complications: Plan: -Last A1c was 8.0 on 07/17/2020 -Glycemic pharmacy on board, scheduled for NPH 60 units tonight, continue insulin pump, prn meds ordered for hypoglycemia - Allow HH/diabetic diet -She monitors her blood sugar and insulin doses (4) Dyslipidemia: Plan: -Continue statin therapy 40 HS (5) Hypothyroidism: Plan: - Cont levothyroxine 100 mcg (6) Chronic renal insufficiency: Plan: - Follow am bmp - Cr. 0.9 on 09/05 DVT ppx: - teds, scds CODE: Full code Dispo: From home, likely to remain in the hospital x 1-2 days Admission and Anticipated Discharge Date Admission Date: September 19, 2020 Subjective September 20, 2020 The patient was seen and examined in medical floor She is a status post L3-L4 decompression and fusion Has some pain at the back but denies any other symptoms 09/21/2020 The patient was seen and examined in telemetry unit She has had a syncopal episode in the bathroom and was transferred to telemetry unit for better monitoring She has been feeling a lot better since this morning and denies any significant symptoms at rest She has been getting her PT and OT as planned Review of Systems Review of Systems: All systems reviewed and are unremarkable except as noted below Cardiovascular: Additional Comments: Has had syncopal episode yesterday evening. History of similar episodes in the past Physical Exam Physical Exam: Lying in bed comfortably Constitutional: WD/WN, vitals as above Eyes: PERRL, conjunctivae normal, anicteric sclerae ENMT: external ear and nose normal, oropharynx normal Neck: trachea midline, no thyromegaly Respiratory: no respiratory distress and no cough Auscultation: lungs clear to auscultation bilaterally Cardiovascular: Rate/Rhythm: regular rate and regular rhythm; not tachycardic Heart Sounds: normal S1, normal S2 and + murmur (Over 6 ejection murmur over precordium) Gastrointestinal (Abdomen): normal bowel sounds, soft, nontender, no hepatosplenomegaly Musculoskeletal: No acute arthritis in any joint Neurologic: Alert, awake and oriented x3 Results & Data Results & Data ([facility]) Vital Signs (Past 12 Hours) Vital Signs Temp Pulse Pulse Resp BP Pulse Ox 09/21/20 12:43 98/62 L 09/21/20 11:37 36.9 C 83 20 122/66 95 09/21/20 09:08 94 H 09/21/20 07:32 37.1 C 91 H 20 135/69 94 09/21/20 05:44 101 H 91/57 L 09/21/20 02:16 37.4 C 87 18 122/69 94 Laboratory Results Short CBC 09/21/20 Range/Units 05:27 WBC 8.75 (4.8-10.8) K/uL Hgb 9.0 L (12.0-16.0) g/dL Hct 28.2 L (37-47) % Plt Count 226 (130-400) K/uL BMP 09/21/20 05:27 Sodium 135 L Potassium 4.5 Chloride 101 Carbon Dioxide 30 BUN 21 H Creatinine 1.00 Glucose 236 H Calcium 8.7 Medications Administered Current Inpatient Medications Acetaminophen (Acetaminophen 500 Mg Tab) 1,000 mg PO Q8H PRN PRN Reason: MILD Pain Scale 1,2,3 & Pre PT Stop: 10/19/20 10:40 Last Admin: 09/21/20 06:19 Dose: 1,000 mg Documented by: Al Hydrox/Mg Hydrox/Simethicone (Aluminum/Magnesium Susp 30 Ml Udc) 30 ml PO Q6H PRN PRN Reason: Dyspepsia Stop: 10/19/20 10:40 Ascorbic Acid (Ascorbic Acid 500 Mg Tab) 2,000 mg PO QAM [facility] Stop: 10/20/20 08:59 Last Admin: 09/21/20 08:18 Dose: 2,000 mg Documented by: Atorvastatin Calcium (Atorvastatin 40 Mg Tab) 40 mg PO QAM [facility] Stop: 10/20/20 08:59 Last Admin: 09/21/20 08:19 Dose: 40 mg Documented by: Bisacodyl (Bisacodyl 10 Mg Supp) 10 mg VT DAILY PRN PRN Reason: Constipation Stop: 10/19/20 10:40 Brimonidine Tartrate (Brimonidine Tartrate 0.2% 5ml) 1 drops OP BID [facility] Stop: 10/19/20 20:59 Last Admin: 09/21/20 08:22 Dose: 1 drops Documented by: Calcitriol (Calcitriol 0.25 Mcg Capsule) 0.5 mcg PO QAM [facility] Stop: 10/20/20 08:59 Last Admin: 09/21/20 08:20 Dose: 0.5 mcg Documented by: Dextrose (Dextrose 50% 50 Ml Syringe) 25 - 50 ml IV UD PRN; Protocol PRN Reason: Hypoglycemia Protocol Stop: 10/19/20 11:29 Diphenhydramine HCl (Diphenhydramine Capsule 25 Mg Cap) 25 mg PO Q6H PRN PRN Reason: Allergic Rhinitis/Insomnia Stop: 10/19/20 10:40 Duloxetine HCl (Duloxetine Hcl 60 Mg Cap) 60 mg PO QAM [facility] Stop: 10/20/20 08:59 Last Admin: 09/21/20 08:19 Dose: 60 mg Documented by: Famotidine (Famotidine 20 Mg Tab) 20 mg PO Q12H PRN PRN Reason: Dyspepsia Stop: 10/19/20 10:40 Gabapentin (Gabapentin 300 Mg Cap) 600 mg PO QDL [facility] Stop: 10/19/20 11:29 Last Admin: 09/21/20 12:11 Dose: 600 mg Documented by: Gabapentin (Gabapentin 300 Mg Cap) 900 mg PO HS [facility] Stop: 10/19/20 20:59 Last Admin: 09/20/20 19:39 Dose: 900 mg Documented by: Gabapentin (Gabapentin 300 Mg Cap) 600 mg PO QAM [facility] Stop: 10/20/20 08:59 Last Admin: 09/21/20 08:18 Dose: 600 mg Documented by: Glucagon (Glucagon For Inj 1 Mg Vial) 1 mg SQ UD PRN; Protocol PRN Reason: Hypoglycemia Protocol Stop: 10/19/20 11:29 Glucose (Glucose 40% Gel 15 Gm Tube) 15 - 30 gm PO UD PRN; Protocol PRN Reason: Hypoglycemia Protocol Stop: 10/19/20 11:29 Glucose (Glucose 10 Tabs/Tube) 4 - 8 tabs PO UD PRN; Protocol PRN Reason: Hypoglycemia Protocol Stop: 10/19/20 11:29 Hydromorphone HCl (Hydromorphone Inj 0.5 Mg/0.5 Ml Syr) 0.5 mg IV Q3H PRN PRN Reason: MOD pain (scale 4-6) & Pre PT Stop: 10/03/20 10:40 Hydroxyzine HCl (Hydroxyzine Hcl 25 Mg Tab) 25 mg PO Q8H PRN PRN Reason: Anxiety Stop: 10/19/20 10:40 Promethazine HCl 12.5 mg/ (Sodium Chloride) 50.5 mls @ 202 mls/hr IV Q6H PRN PRN Reason: Nausea &/or Vomiting Stop: 10/19/20 10:40 Acetaminophen (Ofirmev) 1,000 mg in 100 mls @ 400 mls/hr IV Q8H PRN PRN Reason: Pain Rating 1-3 & Pre PT Stop: 09/22/20 10:40 Lorazepam (Ativan) 0.5 mg in 1 mls @ 1 mls/min IV Q8H PRN PRN Reason: Sedation/Anxiety Stop: 10/19/20 10:40 Sodium Chloride (Nss 1000ml) 1,000 mls @ 100 mls/hr IV .Q10H [facility] Stop: 10/21/20 06:14 Last Admin: 09/21/20 06:14 Dose: 100 mls/hr Documented by: Influenza Virus Vaccine Quadrival (Do Not Administer Flu Vaccine) 1 ea N/A PRN PRN PRN Reason: Notification Stop: 10/19/20 10:40 Insulin Aspart (Novolog Insulin Pump) 1 ea N/A ACHS [facility]; Protocol Stop: 10/19/20 11:29 Last Admin: 09/21/20 12:10 Dose: 1 ea Documented by: Insulin Aspart (Insulin Aspart 100 Units/Ml Vial) 0 units SC PRN PRN PRN Reason: PUMP REFILL Stop: 10/19/20 11:29 Levothyroxine Sodium (Levothyroxine Sodium 100 Mcg Tablet) 100 mcg PO DAILYBB [facility] Stop: 10/20/20 06:29 Last Admin: 09/21/20 05:34 Dose: 100 mcg Documented by: Lorazepam (Lorazepam 0.5 Mg Tab) 0.5 mg PO Q8H PRN PRN Reason: sedation/anxiety Stop: 10/19/20 10:40 Magnesium Hydroxide (Magnesium Hydroxide Susp 30 Ml Udc) 30 ml PO Q24H PRN PRN Reason: Constipation Stop: 10/19/20 10:40 Magnesium Oxide (Magnesium Oxide 400 Mg Tab) 400 mg PO QAM [facility] Stop: 10/20/20 08:59 Last Admin: 09/21/20 08:20 Dose: 400 mg Documented by: Metoclopramide HCl (Metoclopramide Hcl Inj 5 Mg/Ml 2 Ml Vial) 10 mg IV Q6H PRN PRN Reason: Nausea &/or Vomiting Stop: 10/19/20 10:40 Midodrine (Midodrine Hcl 2.5 Mg Tab) [facility] [place]: 10/20/20 08:59 Last Admin: 09/21/20 08:19 Dose: 5 mg Documented by: Mirabegron (Mirabegron Er 25 Mg Tab) 25 mg PO QAM [facility] Stop: 10/20/20 08:59 Last Admin: 09/21/20 08:19 Dose: 25 mg Documented by: Miscellaneous (Carbohydrates For Hypoglycemia ) 15 - 30 gm PO UD PRN PRN Reason: Hypoglycemia Treatment Stop: 10/19/20 11:29 Miscellaneous Information (Pharmacy Glycemic Mgmt Consult) 1 ea N/A UD PRN PRN Reason: Consult Stop: 10/19/20 10:40 Multivitamins/Minerals (Calcium 600mg + Vit D 400 Iu Tab) 1 [facility] [place]: 10/20/20 08:59 Last Admin: 09/21/20 08:20 Dose: 1 tab Documented by: Naloxone HCl (Naloxone Hcl 0.4 Mg/1 Ml Vial/Carp) 0.1 mg IV Q5M PRN PRN Reason: Oversedation/respiratory dep Stop: 10/19/20 10:40 Ondansetron HCl (Ondansetron Inj 2 Mg/Ml 2 Ml Vial) 4 mg IV Q6H PRN PRN Reason: Nausea &/or Vomiting Stop: 10/19/20 10:40 Ondansetron HCl (Ondansetron 4 Mg Od Tab) 4 mg PO Q6H PRN PRN Reason: Nausea Stop: 10/19/20 10:40 Oxycodone HCl (Oxycodone Hcl Ir 5 Mg Tab (Immediate Release)) 5 - 10 mg PO Q4H PRN PRN Reason: Pain & Pre PT Stop: 10/03/20 10:40 Pneumococcal Polyvalent Vaccine (Do Not Administer Pneumococcal Vaccine) 1 ea N/A PRN PRN PRN Reason: Notification Stop: 10/19/20 10:40 Polyethylene Glycol (Polyethylene (Miralax) 17 Gm Pack) 17 gm PO Q6 [facility] Stop: 10/20/20 05:59 Last Admin: 09/21/20 12:13 Dose: 17 gm Documented by: Senna/Docusate Sodium (Docusate Sodium/Senna 50/8.6mg Tab) 2 tab PO HS [facility] Stop: 10/19/20 20:59 Last Admin: 09/20/20 19:40 Dose: 2 tab Documented by: Sodium Biphosphate/Sodium Phosphate (Sod Phosphate/Sod Biphosphate Enema 132 Ml Btl) 132 ml VT ONE PRN PRN Reason: Constipation Stop: 10/19/20 10:40 Timolol Maleate (Timolol Maleate 0.5% Op Soln 5 Ml Btl) 1 drops OP BID [facility] Stop: 10/19/20 20:59 Last Admin: 09/21/20 08:22 Dose: 1 drops Documented by: Tramadol HCl (Tramadol Hcl 50 Mg Tablet) 50 - 100 mg PO Q4H PRN PRN Reason: Moderate-Severe pain & Pre PT Stop: 10/19/20 10:40 Last Admin: 09/20/20 19:36 Dose: 50 mg Documented by: Zinc Sulfate (Zinc Sulfate 220 Mg Capsule) 220 mg PO QAM [facility] Stop: 10/20/20 08:59 Last Admin: 09/21/20 08:20 Dose: 220 mg Documented by:
[2020-09-21] MEDS: DOCUSATE SODIUM/SENNA 50/8.6MG TAB PO SCH (20:59)
[2020-09-22] MEDS: SODIUM CHLORIDE 0.9% 1000ML 1,000 ML IV SCH ×2 (02:17→12:48)
[2020-09-22] MEDS: LEVOTHYROXINE SODIUM 100 MCG TABLET PO SCH (06:02)
[2020-09-22] MEDS: POLYETHYLENE (MIRALAX) 17 GM PACK PO SCH ×2 (06:05→11:56)
[2020-09-22] MEDS: ATORVASTATIN 40 MG TAB PO SCH (08:04)
[2020-09-22] MEDS: ZINC SULFATE 220 MG CAPSULE PO SCH (08:04)
[2020-09-22] MEDS: DULoxetine HCL 60 MG CAP PO SCH (08:05)
[2020-09-22] MEDS: CALCIUM 600MG + VIT D 400 IU TAB PO SCH (08:05)
[2020-09-22] MEDS: MAGNESIUM OXIDE 400 MG TAB PO SCH (08:05)
[2020-09-22] MEDS: ASCORBIC ACID 500 MG TAB PO SCH (08:05)
[2020-09-22] MEDS: MIDODRINE HCL 2.5 MG TAB PO SCH (08:05)
[2020-09-22] MEDS: MIRABEGRON ER 25 MG TAB PO SCH (08:06)
[2020-09-22] MEDS: CALCITRIOL 0.25 MCG CAPSULE PO SCH (08:06)
[2020-09-22] MEDS: GABAPENTIN 300 MG CAP PO SCH ×2 (08:06→11:54)
[2020-09-22] MEDS: NovoLOG INSULIN PUMP SCH ×2 (08:08→11:54)
[2020-09-22] MEDS: TIMOLOL MALEATE 0.5% OP SOLN 5 ML BTL OP SCH (08:09)
[2020-09-22] MEDS: BRIMONIDINE TARTRATE 0.2% 5ML OP SCH (08:09)
[2020-09-22 09:05] LABS: Basophils # (auto) 0.03 K/uL (0-0.2); Basophils % (auto) 0.4 %; Eosinophils # (auto) 0.17 K/uL (0-0.5); Eosinophils % (auto) 2.3 %; Hematocrit (blood only) 28.6 % (37-47); Hemoglobin 8.9 g/dL (12.0-16.0); Immature Granulocytes # (auto) 0.01 K/uL (0.00-0.02); Immature Granulocytes % (auto) 0.1 %; Lymphocytes # (auto) 1.47 K/uL (1.2-3.4); Lymphocytes % (auto) 19.9 %; Mean Corpuscular Hemoglobin 29.1 pg (25-34); Mean Corpuscular Hgb Conc 31.1 g/dL (32-36); Mean Corpuscular Volume 93.5 fL (80-100); Mean Platelet Volume 9.6 fL (7.4-10.4); Monocytes # (auto) 0.66 K/uL (0.11-0.59); Monocytes % (auto) 8.9 %; Neutrophils # (auto) 5.06 K/uL (1.4-6.5); Neutrophils % (auto) 68.4 %; Platelet Count 251 K/uL (130-400); RDW Coefficient of Variation 14.9 % (11.5-14.5); RDW Standard Deviation 50.7 fL (36.4-46.3); Red Blood Count 3.06 M/uL (4.2-5.4)
[2020-09-22 09:30] LABS: BUN Creatinine Ratio 19.3 (10-20); Calcium 8.9 mg/dl (8.5-10.1); Creatinine Clr Calc Pharmacy 51.9 ml/min; Est GFR (African American) 73.4 ml/min; Est GFR (Non-African American) 63.4 ml/min
--- NOTE | 2020-09-22 09:40 | Hospitalist Progress Note ---
Date of Service September 22, 2020 Assessment & Plan (1) Neurogenic claudication due to lumbar spinal stenosis: Plan: S/p L3-L4 decompression fusion by Dr. Reza on 09/19, POD #3 EBL 75 mL, HAROON drain output 480 mL Pain/wound management per orthopedics Activity and therapy as prescribed orthopedics SCD/teds for VTE prophylaxis Ok to discharge from medicine standpoint - recommendation to increase midodrine to 5mg bid Acute blood loss anemia Preop hemoglobin 13.6 on 07/16 and 11.7 on 07/17/2020 Hemoglobin 8.9 today (2) Syncope: Plan: Had syncopal episode during hospital stay, transferred to telemetry +Orthostatic Hypotension She has a history of syncope in the past with negative work-up Lying blood pressure 123/67 and sitting 78/48 and could not stand due to ongoing dizziness - yesterday +orthostasis today but no hypotension and asymptomatic History of orthostasis and low blood pressure at baseline on midodrine remains on IVF, ambulated this morning w/o difficulty increase midodrine to 5mg bid (3) Type 1 diabetes mellitus with complications: Plan: Last A1c was 8.0 on 07/17/2020 Glycemic pharmacy on board - appreciate their input (4) Dyslipidemia: Plan: Continue statin therapy 40 HS (5) Hypothyroidism: Plan: Cont levothyroxine 100 mcg (6) Chronic renal insufficiency: Plan: - Follow am bmp - Cr. 0.87 today DVT ppx: - teds, scds CODE: Full code Patient was seen and examined in collaboration with Dr. Gabriel, please see ad dendum Thank you for this consultation. We will follow the patient with you during their hospital stay. You can reach a member of the [facility] Hospitalist Team 06/09 via hospitalist role on tiger text. Admission and Anticipated Discharge Date Admission Date: September 19, 2020 Subjective Patient was seen and examined in room 275-1. Currently offers no acute concerns or complaints except for wanting to be discharged. She denies any lightheadedness or dizziness. She was up and ambulated to the bathroom this morning without difficulty. She admits to, "never having dizziness this entire time, but relates her episodes of almost passing out to severe pain." She did have a small bowel movement yesterday. She denies fever, chills, sweats, lightheadedness, dizziness, chest pain, shortness of breath, cough, nausea, vomiting, abdominal pain. She denies any lumbar radiculopathy symptoms. Review of Systems Review of Systems: All systems reviewed & are unremarkable except as noted in HPI & below Physical Exam Physical Exam: Gen: WD/WN, female, NAD, A&O x3 HEENT: Normocephalic, atraumatic, conjunctivae moist, sclerae anicteric, mucous membranes moist. Lung: Clear to Auscultation bilaterally, no wheezes/rales/rhonchi Heart: Regular rate, regular rhythm, 2/6 SIXTO noted RUSB, no rubs, or gallops Abdomen: Soft, NT, ND +BS x 4 Extremities: No edema Skin: Warm, no rash, negative turgor. Results & Data Results & Data ([facility]) Vital Signs (Past 12 Hours) Vital Signs Temp Pulse Pulse Resp BP BP Pulse Ox 09/22/20 07:44 36.9 C 88 20 119/71 95 09/22/20 03:21 36.9 C 87 18 138/71 96 09/21/20 22:34 37 C 91 H 18 143/72 H 93 09/21/20 22:19 90 Laboratory Results Short CBC 09/22/20 Range/Units 08:38 WBC 7.40 (4.8-10.8) K/uL Hgb 8.9 L (12.0-16.0) g/dL Hct 28.6 L (37-47) % Plt Count 251 (130-400) K/uL BMP 09/22/20 08:38 Sodium 138 Potassium 4.0 Chloride 104 Carbon Dioxide 30 BUN 17 Creatinine 0.87 Glucose 179 H Calcium 8.9 Medications Administered Medication List Acetaminophen (Acetaminophen 500 Mg Tab) 1,000 mg PO Q8H PRN PRN Reason: MILD Pain Scale 1,2,3 & Pre PT Stop: 10/19/20 10:40 Last Admin: 09/21/20 21:00 Dose: 1,000 mg Documented by: [id number] Admin: 09/21/20 06:19 Dose: 1,000 mg Documented by: [id number] Ascorbic Acid (Ascorbic Acid 500 Mg Tab) [facility] [place]: 10/20/20 08:59 Last Admin: 09/22/20 08:05 Dose: 2,000 mg Documented by: [id number] Admin: 09/21/20 08:18 Dose: 2,000 mg Documented by: [id number] Admin: 09/20/20 07:43 Dose: 2,000 mg Documented by: [id number] Atorvastatin Calcium (Atorvastatin 40 Mg Tab) 40 mg PO QAM [facility] Stop: 10/20/20 08:59 Last Admin: 09/22/20 08:04 Dose: 40 mg Documented by: [id number] Admin: 09/21/20 08:19 Dose: 40 mg Documented by: [id number] Admin: 09/20/20 07:42 Dose: 40 mg Documented by: [id number] Brimonidine Tartrate (Brimonidine Tartrate 0.2% 5ml) 1 drops OP BID [facility] Stop: 10/19/20 20:59 Last Admin: 09/22/20 08:09 Dose: 1 drops Documented by: [id number] Admin: 09/21/20 21:00 Dose: 1 drops Documented by: [id number] Admin: 09/21/20 08:22 Dose: 1 drops Documented by: [id number] Admin: 09/20/20 19:40 Dose: 1 drops Documented by: [id number] Admin: 09/20/20 07:45 Dose: 1 drops Documented by: [id number] Admin: 09/19/20 20:29 Dose: 1 drops Documented by: [id number] Calcitriol (Calcitriol 0.25 Mcg Capsule) 0.5 mcg PO QAM [facility] Stop: 10/20/20 08:59 Last Admin: 09/22/20 08:06 Dose: 0.5 mcg Documented by: [id number] Admin: 09/21/20 08:20 Dose: 0.5 mcg Documented by: [id number] Admin: 09/20/20 07:42 Dose: 0.5 mcg Documented by: [id number] Duloxetine HCl (Duloxetine Hcl 60 Mg Cap) [facility] [place]: 10/20/20 08:59 Last Admin: 09/22/20 08:05 Dose: 60 mg Documented by: [id number] Admin: 09/21/20 08:19 Dose: 60 mg Documented by: [id number] Admin: 09/20/20 07:44 Dose: 60 mg Documented by: [id number] Gabapentin (Gabapentin 300 Mg Cap) 600 mg PO QDL [facility] Stop: 10/19/20 11:29 Last Admin: 09/21/20 12:11 Dose: 600 mg Documented by: [id number] Admin: 09/20/20 12:34 Dose: Not Given Documented by: [id number] Admin: 09/20/20 12:31 Dose: 600 mg Documented by: [id number] Gabapentin (Gabapentin 300 Mg Cap) 900 mg PO HS [facility] Stop: 10/19/20 20:59 Last Admin: 09/21/20 20:59 Dose: 900 mg Documented by: [id number] Admin: 09/20/20 19:39 Dose: 900 mg Documented by: [id number] Admin: 09/19/20 20:32 Dose: 900 mg Documented by: [id number] Gabapentin (Gabapentin 300 Mg Cap) 600 mg PO QAM [facility] Stop: 10/20/20 08:59 Last Admin: 09/22/20 08:06 Dose: 600 mg Documented by: [id number] Admin: 09/21/20 08:18 Dose: 600 mg Documented by: [id number] Admin: 09/20/20 12:29 Dose: 600 mg Documented by: [id number] Admin: 09/20/20 07:44 Dose: 600 mg Documented by: [id number] Sodium Chloride (Nss 1000ml) 1,000 mls @ 100 mls/hr IV .Q10H [facility] Stop: 10/21/20 06:14 Last Admin: 09/22/20 02:17 Dose: 100 mls/hr Documented by: [id number] Infusion: 09/22/20 02:17 Dose: 100 mls/hr Documented by: [id number] Admin: 09/21/20 16:52 Dose: 100 mls/hr Documented by: [id number] Infusion: 09/21/20 16:14 Dose: 100 mls/hr Documented by: [id number] Admin: 09/21/20 06:14 Dose: 100 mls/hr Documented by: [id number] Insulin Aspart (Novolog Insulin Pump) 1 ea N/A ACHS [facility]; Protocol Stop: 10/19/20 11:29 Last Admin: 09/22/20 08:08 Dose: 1 ea Documented by: [id number] Admin: 09/21/20 21:31 Dose: 1 ea Documented by: [id number] Admin: 09/21/20 17:18 Dose: 1 ea Documented by: [id number] Admin: 09/21/20 12:10 Dose: 1 ea Documented by: [id number] Admin: 09/21/20 08:21 Dose: 1 ea Documented by: [id number] Admin: 09/20/20 21:22 Dose: Not Given Documented by: [id number] Admin: 09/20/20 17:56 Dose: 1 ea Documented by: [id number] Admin: 09/20/20 12:26 Dose: 1 ea Documented by: [id number] Admin: 09/20/20 08:43 Dose: 1 ea Documented by: [id number] Admin: 09/19/20 20:41 Dose: 1 ea Documented by: [id number] Admin: 09/19/20 17:47 Dose: 1 ea Documented by: [id number] Admin: 09/19/20 12:43 Dose: 2.8 ea Documented by: [id number] Levothyroxine Sodium (Levothyroxine Sodium 100 Mcg Tablet) 100 mcg PO DAILYBB [facility] Stop: 10/20/20 06:29 Last Admin: 09/22/20 06:02 Dose: 100 mcg Documented by: [id number] Admin: 09/21/20 05:34 Dose: 100 mcg Documented by: [id number] Admin: 09/20/20 06:23 Dose: 100 mcg Documented by: [id number] Magnesium Oxide (Magnesium Oxide 400 Mg Tab) 400 mg PO QAM [facility] Stop: 10/20/20 08:59 Last Admin: 09/22/20 08:05 Dose: 400 mg Documented by: [id number] Admin: 09/21/20 08:20 Dose: 400 mg Documented by: [id number] Admin: 09/20/20 07:40 Dose: 400 mg Documented by: [id number] Midodrine (Midodrine Hcl 2.5 Mg Tab) [facility] [place]: 10/20/20 08:59 Last Admin: 09/22/20 08:05 Dose: 5 mg Documented by: [id number] Admin: 09/21/20 08:19 Dose: 5 mg Documented by: [id number] Admin: 09/20/20 06:23 Dose: 5 mg Documented by: [id number] Mirabegron (Mirabegron Er 25 Mg Tab) 25 mg PO QAM [facility] Stop: 10/20/20 08:59 Last Admin: 09/22/20 08:06 Dose: 25 mg Documented by: [id number] Admin: 09/21/20 08:19 Dose: 25 mg Documented by: [id number] Admin: 09/20/20 07:40 Dose: 25 mg Documented by: [id number] Multivitamins/Minerals (Calcium 600mg + Vit D 400 Iu Tab) 1 tab PO QAM [facility] Stop: 10/20/20 08:59 Last Admin: 09/22/20 08:05 Dose: 1 tab Documented by: [id number] Admin: 09/21/20 08:20 Dose: 1 tab Documented by: [id number] Admin: 09/20/20 07:41 Dose: 1 tab Documented by: [id number] Polyethylene Glycol (Polyethylene (Miralax) 17 Gm Pack) 17 gm PO Q6 [facility] Stop: 10/20/20 05:59 Last Admin: 09/22/20 06:05 Dose: 17 gm Documented by: [id number] Admin: 09/21/20 23:25 Dose: Not Given Documented by: [id number] Admin: 09/21/20 17:18 Dose: 17 gm Documented by: [id number] Admin: 09/21/20 12:13 Dose: 17 gm Documented by: [id number] Admin: 09/21/20 05:34 Dose: 17 gm Documented by: [id number] Admin: 09/21/20 00:22 Dose: Not Given Documented by: [id number] Admin: 09/20/20 17:58 Dose: 17 gm Documented by: [id number] Admin: 09/20/20 12:30 Dose: 17 gm Documented by: [id number] Admin: 09/20/20 05:47 Dose: Not Given Documented by: [id number] Senna/Docusate Sodium (Docusate Sodium/Senna 50/8.6mg Tab) 2 tab PO HS [facility] Stop: 10/19/20 20:59 Last Admin: 09/21/20 20:59 Dose: 2 tab Documented by: [id number] Admin: 09/20/20 19:40 Dose: 2 tab Documented by: [id number] Admin: 09/19/20 20:35 Dose: Not Given Documented by: [id number] Timolol Maleate (Timolol Maleate 0.5% Op Soln 5 Ml Btl) 1 drops OP BID [facility] Stop: 10/19/20 20:59 Last Admin: 09/22/20 08:09 Dose: 1 drops Documented by: [id number] Admin: 09/21/20 21:00 Dose: 1 drops Documented by: [id number] Admin: 09/21/20 08:22 Dose: 1 drops Documented by: [id number] Admin: 09/20/20 19:38 Dose: 1 drops Documented by: [id number] Admin: 09/20/20 07:46 Dose: 1 drops Documented by: [id number] Admin: 09/19/20 20:29 Dose: 1 drops Documented by: [id number] Tramadol HCl (Tramadol Hcl 50 Mg Tablet) 50 - 100 mg PO Q4H PRN PRN Reason: Moderate-Severe pain & Pre PT Stop: 10/19/20 10:40 Last Admin: 09/20/20 19:36 Dose: 50 mg Documented by: [id number] Admin: 09/19/20 16:29 Dose: 100 mg Documented by: [id number] Zinc Sulfate (Zinc Sulfate 220 Mg Capsule) 220 mg PO QAM [facility] Stop: 10/20/20 08:59 Last Admin: 09/22/20 08:04 Dose: 220 mg Documented by: [id number] Admin: 09/21/20 08:20 Dose: 220 mg Documented by: [id number] Admin: 09/20/20 07:39 Dose: 220 mg Documented by: [id number] Discontinued Medications Acetaminophen (Acetaminophen 500 Mg Tab) 1,000 mg PO PREOP [facility] Stop: 09/19/20 18:00 Last Admin: 09/19/20 06:52 Dose: 1,000 mg Documented by: [id number] Bupivacaine HCl (Bupivacaine 0.5 % 5 Mg/1 Ml Mpf 30ml Vial) Confirm Administered Dose 30 ml .ROUTE .STK-MED ONE Stop: 09/19/20 07:04 Last Admin: 09/19/20 08:15 Dose: 20 ml Documented by: [id number] Cefazolin Sodium (Cefazolin 250 Mg/Ml 1 Gm Vial) Confirm Administered Dose 1,000 mg .ROUTE .STK-MED ONE Stop: 09/19/20 07:04 Last Admin: 09/19/20 09:13 Dose: 1,000 mg Documented by: [id number] Celecoxib (Celebrex 200 Mg Cap) 200 mg PO PREOP [facility] Stop: 09/19/20 18:00 Last Admin: 09/19/20 06:52 Dose: 200 mg Documented by: [id number] Epinephrine HCl (Epinephrine Inj 1 Mg/Ml Amp) Confirm Administered Dose 1 mg .ROUTE .STK-MED ONE Stop: 09/19/20 07:04 Last Admin: 09/19/20 08:15 Dose: 0.15 mg Documented by: [id number] Gabapentin (Gabapentin 300 Mg Cap) 300 mg PO PREOP [facility] Stop: 09/19/20 18:00 Last Admin: 09/19/20 06:52 Dose: Not Given Documented by: [id number] Lactated Ringer's (Lr) 1,000 mls @ 15 mls/hr IV .Q24H [facility] Stop: 09/20/20 05:59 Last Infusion: 09/19/20 07:45 Dose: 0 mls/hr Documented by: [id number] Admin: 09/19/20 06:53 Dose: 15 mls/hr Documented by: [id number] Cefazolin Sodium (Ancef 1000mg) 1,000 mg in 7.5 mls @ 2.5 mls/min IV PREOP [facility]; Protocol Stop: 09/19/20 18:00 Last Admin: 09/19/20 07:45 Dose: 2.5 mls/min Documented by: [id number] Sodium Chloride (Nss 1000ml) 1,000 mls @ 100 mls/hr IV .Q10H [facility] Stop: 10/19/20 10:40 Last Admin: 09/19/20 21:33 Dose: Not Given Documented by: [id number] Infusion: 09/19/20 21:33 Dose: 0 mls/hr Documented by: [id number] Infusion: 09/19/20 20:32 Dose: 100 mls/hr Documented by: [id number] Admin: 09/19/20 11:13 Dose: 100 mls/hr Documented by: [id number] Cefazolin Sodium (Ancef 1000mg) 1,000 mg in 7.5 mls @ 2.5 mls/min IV Q8H [facility]; Protocol Stop: 09/20/20 00:02 Last Admin: 09/20/20 00:54 Dose: 2.5 mls/min Documented by: [id number] Admin: 09/19/20 16:30 Dose: 2.5 mls/min Documented by: [id number] Insulin Human NPH (Novolin-N (Nph) Per Unit Charge) 20 units SQ ONE ONE Stop: 09/19/20 11:31 Last Admin: 09/19/20 12:41 Dose: 20 syr Documented by: [id number] Cosigned by: [id number] Menthol (Cough Drop (Sugar Free) Junior 24 Junior/1 Box) Confirm Administered Dose 24 junior BUCCAL .STK-MED ONE Stop: 09/19/20 18:48 Last Admin: 09/19/20 20:28 Dose: 24 junior Documented by: [id number] Miscellaneous ( Floseal Hemostatic Matrix 10ml) 30 ml TOP ONCE ONE Stop: 09/19/20 09:35 Last Admin: 09/19/20 09:35 Dose: 20 ml Documented by: [id number]
--- NOTE | 2020-09-22 12:31 | Discharge Summary ---
Date of Service September 22, 2020 Admission HPI Per Admitting Provider This is a 80-year-old female who presents with chronic persistent back and leg pain after failing course of nonoperative care she is here for surgical intervention. Principal Diagnosis Lumbar spinal stenosis with neurogenic claudication Discharge Data Allergies Allergy/AdvReac Type Severity Reaction Status Date / Time tetracycline AdvReac Intermediate N/V Verified 09/19/20 06:58 (severe) Consultations 09/19/20 10:41 Consult Hospitalist Routine Procedures Performed Operation Date: 09/19/20 07:45 Actual Procedures p L3-L4 Decompression Fusion, Spinal Cord Monitoring(Not Applicable) - Kannan Reza DO Ordered Studies 09/19/20 07:00 [place] lumbar spine 2-3V Routine Hospital Course (1) Neurogenic claudication due to lumbar spinal stenosis: Patient underwent lumbar decompression fusion tolerates well second orthopedic for postoperative postop day 1 she was up ambulating progressed to postop day #2 did have a syncopal episode and was put on telemetry but this was uneventful afterwards. Postop day #3 HAROON drain decreased probably. Excellent strength testing. Pain well controlled. Subsequent discharge home. Discharge orders and instructions were on the chart for further review. Total Time Total Time Spent Total Time Spent (In Minutes): 20 minutes Discharge Plan Discharge Items Patient Disposition: Home - Self-Care Reason For Visit: Other Intervertebral Disc Degeneration Discharge Diagnosis: Lumbar disc herniation with spinal stenosis Activity: As commented below Non-emergency contact: Primary Care Provider Call non-emergency contact if: you have any medication questions Follow-up/Referrals: Meg Hinton MD [Primary Care Provider] - Diet: Regular Addtl Attending Provider Instructions: ACTIVITY RECOMMENDATIONS: SELF CARE INSTRUCTIONS AFTER THORACIC/LUMBAR FUSIONS 1. You may walk to your tolerance. It is good exercise for your legs and back. Expect some back and intermittent leg aches and pains. 2. You may perform "counter-top" level activities (make a sandwich, aziza with a project, etc.). 3. No bending or lifting of more than 10 pounds or back twisting of any nature (roll like a log when turning in bed). 4. You may ride in a car for 20-30 minutes at a time. No driving until after your first visit with your doctor. 5. Frequent changes of position and restricting sitting to 30 minutes at a time will help limit the amount of back spasms and stiffness you may experience. 6. You may discontinue the use of ambulatory aids (cane, crutches, etc.) once your strength and confidence allow. 7. You may jig grinder set up operator the shower and let water strike your incision when you arrive home at least once daily. Do not take a tub bath, sit in a hot tub or go into a swimming pool until after your first recheck in the office. SPECIAL CARE INSTRUCTIONS: VERY IMPORTANT TO READ AND REVIEW A. Your surgical incision has been closed with a cosmetic suture under the skin that will dissolve in about 6 weeks. In 14 days, you can use a pair of clean scissors and cut the suture that is left outside of the skin at the ends of your incision. 1. The small skin tapes can be removed 7 days after surgery if they have not fallen off by that point. 2. You may keep the wound open to air as much as possible to promote healing after post-op day number 5 unless told otherwise by your doctor. 3. If you think the wound looks like it is becoming infected (redness or worsening drainage) and/or you are experiencing fever, chill or worsening back pain and muscle spasms, contact the office so that we may evaluate you as soon as possible. B. Complications are uncommon, but please contact us if you have any signs or symptoms of: 1. wound infection (fever higher than 102.5 degrees F, redness, separation of wound, drainage, or increasing pain from the incision) 2. blood clots in legs (pain, swelling, redness and warmth in legs) 3. urinary tract infection (fever higher than 102.5 degrees F, burning upon urination or increased frequency of urination) 4. nerve problems (inability to walk on your toes or heels, numbness, loss of bowel or bladder control) 5. any other symptoms that concern you C. Please call the office at if you have any concerns or questions about your operation or recovery. D. No smoking! Smoking drastically decreases the chance of a solid fusion. E. Do not take any anti-inflammatory medications (Indocin, Advil, Motrin, Aspirin, Naprosyn, etc.) as these may inhibit the chance of a solid fusion. Tylenol is okay to take for pain. MANAGING PAIN AFTER SPINAL SURGERY 1. Narcotic medication is intended for short-term use and will be provided for surgical pain. Surgical pain usually lasts for a period of 4-6 weeks. Narcotic medication includes Percocet, Vicodin, Darvocet, Tylenol #3 or Lortab. 2. Longer-term pain is more appropriately treated with non-narcotic medication such as Tylenol ES. 3. Muscle spasm is not appropriately treated with narcotics. Muscle relaxers such as Soma, Flexeril or Skelaxin can be used along with Tylenol ES. 4. Remember that we all live with some "aches and pains". This is not unusual or uncommon after an injury or as we get older. a. Back pain is expected and may include muscle spasms for 4 to 6 weeks after surgery. The pain should gradually improve. If the pain worsens for no apparent reason, please contact the office. b. Intermittent leg pain may also be experienced and should not be concerned about unless it worsens for no apparent reason. If so, please contact the office. 5. We will provide appropriate medication within the normal guidelines of their prescribed use. We will also be very cautious and aware of potential abuse and extended duration of patients' medication needs. a. Pain medications are for your comfort and to assist with sleep and rest so that the tissue can heal. They are not provided in order to return to normal activity and should not be used through the day. To do so or worsening pain at night can result from ongoing tissue damage and developm ent of tolerance to the prescribed medicine. 6. Please allow 2-3 days to process refills. Prescriptions will not be mailed but must be picked up at the office. FOLLOW UP VISIT: Keep your scheduled follow-up appointment. Any questions, please call the office at . Pending Studies at Discharge: No Stand-Alone Forms: My [facility] Getting-in, Smoking Cessation Medications and DC Order Prescriptions: New oxycodone 5 mg tablet 5 mg PO Q6H PRN (Reason: pain, severe) Qty: 30 RF: 0 tramadol 50 mg tablet 50 mg PO Q6H PRN (Reason: pain, moderate) Qty: 30 RF: 0 midodrine 2.5 mg Tablet 5 mg PO BID Qty: 120 RF: 0 Continued Myrbetriq 25 mg tablet extended release 24 hr 25 mg PO QAM RF: 0 Novolog U-100 Insulin aspart 100 unit/mL solution 60 unit continuous subcutaneous infusion DAILY 90 Days Qty: 60 RF: 1 ascorbic acid (vitamin C) [Vitamin C] 1,000 mg Tablet 2 g PO QAM RF: 0 calcium carbonate-vitamin D3 600 mg(1,500mg) -200 unit Tablet 1 tab PO QAM RF: 0 potassium 99 mg Tablet 99 mg PO QAM RF: 0 cyanocobalamin (vitamin B-12) 1,000 mcg/mL Solution 1,000 mcg IM MONTHLY RF: 0 gabapentin 300 mg Capsule 600 mg PO QDL RF: 0 gabapentin 300 mg Capsule 900 mg PO HS RF: 0 magnesium 200 mg Tablet 400 mg PO QAM RF: 0 vitamin A palmitate 10,000 unit Capsule 10,000 unit PO QAM RF: 0 zinc 50 mg Capsule 50 mg PO QAM RF: 0 cholecalciferol (vitamin D3) [Vitamin D3] 50 mcg (2,000 unit) Capsule 100 mcg PO QAM RF: 0 biotin 1 mg Capsule 1 mg PO QAM RF: 0 atorvastatin 40 mg tablet 40 mg PO QAM RF: 0 calcitriol 0.5 mcg capsule 0.5 mcg PO QAM RF: 0 gabapentin 300 mg capsule 600 mg PO QAM RF: 0 zoledronic anio-hcpbvzgq-okivp [Reclast] 5 mg/100 mL piggyback 5 mg IV UD RF: 0 midodrine 5 mg tablet 5 mg PO QAM RF: 0 levothyroxine 100 mcg tablet 100 mcg PO QAM RF: 0 duloxetine [Cymbalta] 60 mg capsule,delayed release(DR/EC) 60 mg PO QAM RF: 0 ipratropium bromide 42 mcg (0.06 %) spray,non-aerosol 1 spray INTRANASAL DAILY PRN (Reason: Congestion) RF: 0 Combigan 0.2-0.5 % drops 1 drp OPB UD RF: 0 Discharge Orders: Discharge Order (Routine); Ordered 09/22/20 Ordered By: Kannan Reza Admission Data Admit Date/Time: 09/19/20 09:35 Attending Provider: Kannan Reza Admit Provider: Kannan Reza Primary Care Provider: Meg Hinton Other Providers: Sandra Gabriel ; Phuong Tan
--- NOTE | 2020-09-22 16:43 | Hospitalist Progress Note ---
Date of Service September 22, 2020 Assessment & Plan Admission and Anticipated Discharge Date Admission Date: September 19, 2020 Supervising Physician Co-Signing Physician Notes Attending addendum The patient was seen and examined in medical telemetry unit She has been feeling much better and does not have any symptoms of dizziness with ambulation Though she was noted to have postural drop with blood pressure She has had physical therapy and most likely be discharged today by the primary care service On examination No apparent distress at rest Hemodynamically stable Chest-clear to auscultate bilaterally Heart-S1-S2 with 3/6 ESM over precordium and aortic area Abdomen-benign Extremities-negative for any edema Her labs, EKG and imaging studies reviewed She is a status post L3-L4 decompression fusion and has been doing fine following surgery surgery Her other medical conditions remained stable Her mild protein was increased to 5 mg twice daily Agree with assessment and plan as outlined above by ELIZABETH Delacruz DR Harvey Results & Data Results & Data ([facility]) Vital Signs (Past 12 Hours) Vital Signs Temp Pulse Pulse Resp BP BP Pulse Ox 09/22/20 13:13 36.9 C 88 20 138/71 119/71 95 09/22/20 09:36 90 09/22/20 07:44 36.9 C 88 20 119/71 95
[2020-09-22] MEDS ORDERED: MIDODRINE HCL 2.5 MG TAB PO SCH (17:00)
== END 2020-09-22 13:42 | disposition home or self-care (01) | DRG 454 ==
LOC: ASU 05:46 → 3E 09:35 → 2N 09-21 07:23